=== PATIENT | male | born 1950 | race Caucasian/White ===

== ENCOUNTER 2017-02-06 16:03 | Inpatient (IN) ==
[2017-02-06 19:09] LABS: Bilirubin,Urine Negative (Negative); Blood,Urine Negative (Negative); Clarity,Urine Cloudy (Clear); Color,Urine Yellow (Yellow); Glucose,Urine (UA) Normal (Normal); Ketones,Urine Negative (Negative); Leukocyte Esterase,Urine Trace (Negative); Nitrite,Urine Negative (Negative); PH,Urine 5.5 pH Units (5.0-8.0); Protein,Urine Trace mg/dL (Neg-Trace); Urobilinogen,Urine Normal (Normal)
[2017-02-06 19:27] LABS: Bacteria,Urine None Seen per hpf (None-Few); Squamous Epithelial Cell,Urine Many per lpf (None-Few)
[2017-02-06 19:33] LABS: Basophils # 0.1 K/mcL (0.0-0.2); Basophils % 0.3 %; Eosinophils # 0.1 K/mcL (0.0-0.6); Eosinophils % 0.3 %; Hematocrit 38.7 % (37.5-50.1); Hemoglobin 12.3 g/dL (12.9-16.9); Immature Granulocytes % 0.6 % (0-4); Immature Platelets 4.1 % (1.1-6.1); Lymphocytes # 1.4 K/mcL (0.6-4.6); Mean Corpuscular HGB Conc 31.8 g/dL (31.6-35.5); Mean Corpuscular Hemoglobin 27.9 pg (28.0-33.3); Mean Corpuscular Volume 87.8 fL (83.0-100.0); Mean Platelet Volume 10.2 fL (9.4-12.4); Monocytes # 1.4 K/mcL (0.0-1.3); Monocytes % 6.3 %; Neutrophils # 19.7 K/mcL (1.6-8.9); Platelet Count 307 K/mcL (140-400); Red Blood Count 4.41 M/mcL (4.19-5.50); Red Cell Distribution Width 14.2 % (11.5-14.5); Segmented Neutrophils % 86.5 %
--- NOTE | 2017-02-06 19:35 | Emergency Department Note ---
Disposition Clinical Impression: Ascites Qualifiers: Ascites type: malignant Qualified Code(s): R18.0 - Malignant ascites Dyspnea Qualifiers: Dyspnea type: shortness of breath Qualified Code(s): R06.02 - Shortness of breath Leukocytosis Qualifiers: Leukocytosis type: unspecified Qualified Code(s): D72.829 - Elevated white blood cell count, unspecified COPD (chronic obstructive pulmonary disease) Qualifiers: COPD type: unspecified COPD Qualified Code(s): J44.9 - Chronic obstructive pulmonary disease, unspecified CAD (coronary artery disease) Qualifiers: Coronary Disease-Associated Artery/Lesion type: [place] artery [place] vs. transplanted heart: [place] heart Associated angina: without angina Qualified Code(s): I25.10 - Atherosclerotic heart disease of [place] coronary artery without angina pectoris Disposition: Admitted As Inpatient Condition: Critical Time of Disposition: 01:31 General Adult HPI - General Chief complaint: ED Abdominal Pain Stated complaint: Sent from Drs office// abnormal CT Time Seen by Provider: 02/06/17 16:12 Source: patient, family Mode of arrival: ambulatory Limitations: no limitations Nursing Notes Reviewed: Yes Vital Signs Reviewed: Yes - History of Present Illness HPI Narrative: Mr. Yeager, a 66yo male, presents from home by POV for evaluation of abdominal pain and distention with associated dyspnea. Onset one week ago and worsening. Associated with bilateral lower back pain. Patient's dyspnea began 3 days ago and has also been progressive. Patient is currently being evaluated for gastric neoplasm. PMH: COPD, coronary artery disease, diabetes, hyperlipidemia, hypertension ROS: Positive: Abdominal distention and discomfort, bilateral lumbar back pain, dyspnea Negative: Fever, chills, nausea, vomiting, cough, chest pains, palpitations, upper back pain, weakness, numbness, tingling, melena, hematochezia, changes in bowel or bladder Pain Scale: 10 - Related Data Home Medications Medication Instructions Recorded Confirmed Atenolol [Tenormin] 25 mg PO BID 02/16/15 02/06/17 Hydrocodone/Acetaminophen [[place] 1 tab PO TID PRN 02/16/15 02/06/17 5-325 Tablet] Losartan/HCTZ [Hyzaar 50/12.5] 1 each PO DAILY 02/16/15 02/06/17 Pravastatin Sodium [Pravachol] 20 mg PO HS 02/16/15 02/06/17 Ranitidine HCl [Zantac] 150 mg PO DAILY PRN 02/16/15 02/06/17 Triamterene/HCTZ 37.5/25mg 1 each PO DAILY 02/16/15 02/06/17 [Dyazide] Clopidogrel [Plavix] 75 mg PO DAILY 09/10/15 02/06/17 Naproxen [Naprosyn] 500 mg PO BID PRN 09/10/15 02/06/17 Albuterol Sulfate [Albuterol 2 puff IH Q4H PRN 02/06/17 02/06/17 Inhaler] Ammonium Lactate [[place]-Hydrolac] 1 appl TP BID PRN 02/06/17 02/06/17 Aspirin Enteric Coated [Aspirin EC] 81 mg PO DAILY 02/06/17 02/06/17 Glimepiride [Amaryl] 4 mg PO BID 02/06/17 02/06/17 Allergies Allergy/AdvReac Type Severity Reaction Status Date / Time No Known Allergies Allergy Verified 06/05/16 17:08 All systems ED: reviewed and negative except as stated. Past Medical History - Past Medical History Medical history: Reports: COPD, coronary artery disease, diabetes, hyperlipidemia, hypertension Surgical history: Reports: coronary bypass (CABG) Psychiatric history: Reports: no psych history - Social History Smoking Status: Never smoker Smokeless Tobacco Status: No Alcohol use: Reports: rarely Drug use: Reports: none Physical Exam Vital Signs Reviewed General: Patient is alert, oriented, and in mild respiratory distress as evidenced by his shallow tachypneic breathing. HEENT: No facial asymmetry. Head is normocephalic and atraumatic. PERRLA, EOMI. oral mucosa moist. Trachea midline. Cardiovascular: Heart regular rate and rhythm without clicks, rubs, gallops, or murmurs. No JVD. PMI nondisplaced. Bilateral radial and posterior tibial pulses 2/4. Respiratory: Symmetric chest rise with poor respiratory effort. Bilateral breath sounds are clear without wheezing, crackles, or rhonchi. Abdomen: Bowel sounds present normoactive x-4 quadrants. Abdomen is soft, distended, and nontender. Unable to assess organomegaly secondary to patient's body habitus. Psych: Patient's affect is appropriate for situation. - General Limitations: no limitations General appearance: alert, other (mild resp distress with conversational dyspnea ) - Head Head exam: atraumatic, normocephalic, normal inspection - Eye Eye exam: Present: normal appearance, PERRL, EOMI. Absent: scleral icterus - ENT ENT exam: normal exam, normal oropharynx, mucous membranes moist - Neck Neck exam: Present: normal inspection. Absent: lymphadenopathy, thyromegaly - Chest Chest inspection: Present: normal inspection, symmetric chest wall rise, tenderness - Respiratory Respiratory exam: Present: normal lung sounds bilaterally. Absent: respiratory distress, wheezes, stridor - Cardiovascular Cardiovascular exam: Present: normal rhythm, tachycardia, normal heart sounds - Abdominal Exam Abdominal exam: Present: soft, Non-Tender, distention, normal bowel sounds, other (generalized abd distention with ascites). Absent: guarding, rebound, rigidity, pulsatile mass - Extremities Exam Extremities exam: Present: full ROM, normal capillary refill, pedal edema, other (1+ pitting edema to LE's b/l.). Absent: tenderness, calf tenderness - Back Exam Back exam: Present: normal inspection, full ROM. Absent: tenderness, CVA tenderness (R), CVA tenderness (L), muscle spasm, paraspinal tenderness, vertebral tenderness - Neurological Exam Neurological exam: Present: alert, oriented X3, CN II-XII intact, reflexes normal. Absent: motor sensory deficit - Psychiatric Psychiatric exam: Present: normal affect, normal mood - Skin Skin exam: Present: warm, dry, intact, normal color. Absent: rash, diaphoresis , pallor Course Course Narrative: Patient presents from home for evaluation of dyspnea. Clinically, this appears to be from reduced diaphragmatic excursion because of his substantial abdominal ascites. The patient does have a history of COPD, he typically requires no supple oxygen at home. His saturations 89% on room air. This improved to 92% on 2 L nasal cannula. This improved to 93-94% on 4 L nasal cannula. Suspect his abdominal ascites secondary to gastric malignancy which still in the process of being worked up by his production support analyst, Dr. Nicolas. Patient has no clinical evidence at this time of spontaneous bacterial peritonitis. Laboratory workup, however, he does have substantially elevated white count making SBP a concern. Will empirically cover. I am concerned about performing abdominal paracentesis within the emergency department given the patient's omental caking and lack of large and safe fluid pocket on bedside ultrasound. Through [facility], spoke with interventional radiology as we are currently after hours. They will perform paracentesis tomorrow morning. Chest x-ray is unremarkable for acute findings to explain the patient's dyspnea. I discussed the patient with admitting hospitalist agrees to accept the patient. CT chest 01/31 not concerning for pulmonary malignancy, pleural effusion, or pericardial effusion. Radiologist commented on omental caking. CT abdomen 01/29 "Interval marked increase in peritoneal and omental soft tissue implants compatible with neoplastic process. A moderate amount of ascites has increased." recent CTA chest: no PE recent BL LE doppler: no DVT Chest X-Ray 02/06/17 19:32 IMPRESSION: Negative low volume portable chest. D/ / Deo Frank MD / Deo Frank MD Interpreting Provider: Deo Frank MD Vital Signs Temperature 97.7 F 02/06/17 17:01 Pulse Rate 125 02/06/17 17:01 Respiratory Rate 18 02/06/17 17:01 Blood Pressure 105/68 02/06/17 17:01 O2 Sat by Pulse Oximetry 92 02/06/17 17:01 Temperature 97.9 F 02/07/17 11:09 Pulse Rate 102 02/07/17 11:09 Respiratory Rate 16 02/07/17 11:42 Blood Pressure 98/60 02/07/17 11:09 O2 Sat by Pulse Oximetry 93 02/07/17 11:42 Oxygen Delivery Oxygen Delivery Nasal Cannula Medical Decision Making - Medical Records Medical records reviewed: Yes I reviewed the patient's medical records. - Lab Data Lab results reviewed: Yes I reviewed the patient's lab results. Result diagrams: 02/07/17 04:42 02/07/17 04:42 Lab Results 02/06/17 02/06/17 02/06/17 Range/Units 18:54 19:19 19:26 WBC 22.8 H (4.3-11.1) K/mcL RBC 4.41 (4.19-5.50) M/mcL Hgb 12.3 L (12.9-16.9) g/dL Hct 38.7 (37.5-50.1) % MCV 87.8 (83.0-100.0) fL MCH 27.9 L (28.0-33.3) pg MCHC 31.8 (31.6-35.5) g/dL RDW 14.2 (11.5-14.5) % Plt Count 307 (140-400) K/mcL MPV 10.2 (9.4-12.4) fL Immature Gran % 0.6 (0-4) % Seg Neutrophils % 86.5 % Lymphocytes % 6.0 % Monocytes % 6.3 % Eosinophils % 0.3 % Basophils % 0.3 % Neutrophils # 19.7 H (1.6-8.9) K/mcL Lymphocytes # 1.4 (0.6-4.6) K/mcL Monocytes # 1.4 H (0.0-1.3) K/mcL Eosinophils # 0.1 (0.0-0.6) K/mcL Basophils # 0.1 (0.0-0.2) K/mcL Immature Plt Fraction 4.1 (1.1-6.1) % Sodium (136-145) mEq/L Potassium (3.5-4.5) mEq/L Chloride (98-109) mEq/L Carbon Dioxide (19-29) mEq/L BUN (8-26) mg/dL Creatinine (0.72-1.25) mg/dL Est GFR ( Amer) (> 60) Est GFR (Non-Af Amer) (> 60) BUN/Creatinine Ratio (6-26) Glucose (70-99) mg/dL POC Glucose 105 H (58-89) Calculated Osmolality (280-300) Lactic Acid (0.5-2.2) mmol/L Calcium (8.6-10.8) mg/dL Total Bilirubin (0.2-1.2) mg/dL Direct Bilirubin (0.0-0.5) mg/dL Indirect Bilirubin (0.0-1.2) mg/dL AST (5-34) Units/L ALT (0-55) Units/L Alkaline Phosphatase (38-126) Units/L Troponin I (0-0.03) ng/mL Serum Total Protein (6.0-8.3) g/dL Albumin (3.5-5.0) g/dL Globulin (2.4-3.5) g/dL Albumin/Globulin Ratio (1.1-2.2) Lipase (8-78) Units/L Urine Color Yellow (Yellow) Urine Clarity Cloudy A (Clear) Urine pH 5.5 (5.0-8.0) pH Units Ur Specific [place] 1.020 (1.010-1.025) Urine Protein Trace (Neg-Trace) mg/dL Urine Glucose (UA) Normal (Normal) mg/dL Urine Ketones Negative (Negative) mg/dL Urine Blood Negative (Negative) Urine Nitrite Negative (Negative) Urine Bilirubin Negative (Negative) Urine Urobilinogen Normal (Normal) mg/dL Ur Leukocyte Esterase Trace H (Negative) Urine Microscopic RBC 0-3 (0-3) per hpf Urine Microscopic WBC 5-15 H (0-3) per hpf Ur Squamous Epith Cells Many H (None-Few) per lpf Ur Transition Epith Cell Few (None-Few) per hpf Amorphous Sediment Few (Few) Urine Bacteria None Seen (None-Few) per hpf Hyaline Casts Few (None-Few) per lpf Granular Casts Few H (None Seen) per lpf Urine Yeast Test Not Performed Ur Culture Indicated? YES A (NO) 02/06/17 02/06/17 02/06/17 Range/Units 19:26 19:26 20:46 WBC (4.3-11.1) K/mcL RBC (4.19-5.50) M/mcL Hgb (12.9-16.9) g/dL Hct (37.5-50.1) % MCV (83.0-100.0) fL MCH (28.0-33.3) pg MCHC (31.6-35.5) g/dL RDW (11.5-14.5) % Plt Count (140-400) K/mcL MPV (9.4-12.4) fL Immature Gran % (0-4) % Seg Neutrophils % % Lymphocytes % % Monocytes % % Eosinophils % % Basophils % % Neutrophils # (1.6-8.9) K/mcL Lymphocytes # (0.6-4.6) K/mcL Monocytes # (0.0-1.3) K/mcL Eosinophils # (0.0-0.6) K/mcL Basophils # (0.0-0.2) K/mcL Immature Plt Fraction (1.1-6.1) % Sodium 140 (136-145) mEq/L Potassium 4.7 H (3.5-4.5) mEq/L Chloride 104 (98-109) mEq/L Carbon Dioxide 26 (19-29) mEq/L BUN 29 H (8-26) mg/dL Creatinine 1.36 H (0.72-1.25) mg/dL Est GFR ( Amer) > 60 (> 60) Est GFR (Non-Af Amer) 52 L (> 60) BUN/Creatinine Ratio 21 (6-26) Glucose 114 H (70-99) mg/dL POC Glucose (58-89) Calculated Osmolality 297 (280-300) Lactic Acid 1.2 (0.5-2.2) mmol/L Calcium 10.0 (8.6-10.8) mg/dL Total Bilirubin 0.4 (0.2-1.2) mg/dL Direct Bilirubin 0.3 (0.0-0.5) mg/dL Indirect Bilirubin 0.1 (0.0-1.2) mg/dL AST 31 (5-34) Units/L ALT 11 (0-55) Units/L Alkaline Phosphatase 78 (38-126) Units/L Troponin I 0.01 (0-0.03) ng/mL Serum Total Protein 6.8 (6.0-8.3) g/dL Albumin 2.7 L (3.5-5.0) g/dL Globulin 4.1 H (2.4-3.5) g/dL Albumin/Globulin Ratio 0.7 L (1.1-2.2) Lipase 20 (8-78) Units/L Urine Color (Yellow) Urine Clarity (Clear) Urine pH (5.0-8.0) pH Units Ur Specific [place] (1.010-1.025) Urine Protein (Neg-Trace) mg/dL Urine Glucose (UA) (Normal) mg/dL Urine Ketones (Negative) mg/dL Urine Blood (Negative) Urine Nitrite (Negative) Urine Bilirubin (Negative) Urine Urobilinogen (Normal) mg/dL Ur Leukocyte Esterase (Negative) Urine Microscopic RBC (0-3) per hpf Urine Microscopic WBC (0-3) per hpf Ur Squamous Epith Cells (None-Few) per lpf Ur Transition Epith Cell (None-Few) per hpf Amorphous Sediment (Few) Urine Bacteria (None-Few) per hpf Hyaline Casts (None-Few) per lpf Granular Casts (None Seen) per lpf Urine Yeast Ur Culture Indicated? (NO) - Radiology Data Radiology results reviewed: Yes I reviewed the patient's radiology results. Chest X-Ray 02/06/17 19:32 IMPRESSION: Negative low volume portable chest. D/ / Deo Frank MD / Deo Frank MD Interpreting Provider: Deo Frank MD - EKG Data EKG #1 EKG attestation: Yes I reviewed and interpreted this EKG. EKG results narrative: EKG dated 06 February 2017 at 19:48 sinus tachycardia with a rate of 113 and P- wave inversion scattered throughout. Normal axis. Nonspecific ST-T axis. Compared to previous dated 02/17/2015 showing sinus rhythm. Attestation Statement - Attestation Attestation: I examined this patient and my medical decision-making was reviewed with the Resident Physician, Dr. Rincon. I agree with the documented findings, disposition and treatment plan as described except to the extent set forth below. Pt is a 66 yo wm who presents to the ED by private vehicle with his for c/ o grad worsening abd distention, SOB, and dec appetite. Pt has been experiencing these sxs for past 10 days, and has been seeing his PCP for these worsening symptoms. Pt had recent CT scanning by his PCP, CT a&P and CT chest at end of January. CT shows concerning findings for abd neoplasm and ascites. CT chest neg for PE/pericardial effusion/pleural effusions. Pt also had DVT studies of LE's which were neg. Pt awaiting f/u with Dr. Nicolas for EGD and biopsies. Pt arrives with hypoxia and incr work of breathing, tachycardic. Pt placed on suppl O2, also hx COPD, but no wheezing. Improved O2 sats on suppl O2. I agree with PE as documented. EKG with no ischemia, sinus tach. CXR wnl. Labs drawn and sent, and reviewed recent CT studies. Pt clinically improved with suppl O2. Resting more comfortably at this time. CT shows grad worsening ascites, with significant omental caking secondary to abd CA. Feel pt would benefit from therapeutic paracentesis. Pt with sig elev WBC count, but no abd pain. Will cover pt with antibx for possible early SBP, and await peritoneal fluid analysis. D/W [facility], who agreed to consult on pt in am for paracentesis. VS improved and pt more comfortable at this time. D/W hosp, who agreed to admit pt for further mgmt.
[2017-02-06 19:42] LABS: Amorphous Sediment,Urine Few (Few); Granular Casts,Urine Few per lpf (None Seen); Hyaline Casts,Urine Few per lpf (None-Few); RBC,Urine 0-3 per hpf (0-3); Transitional Epi Cells,Urine Few per hpf (None-Few)
[2017-02-06 19:48] LABS: Alanine Aminotransferase 11 Units/L (0-55); Albumin 2.7 g/dL (3.5-5.0); Albumin/Globulin Ratio 0.7 (1.1-2.2); Alkaline Phosphatase 78 Units/L (38-126); Aspartate Amino Transferase 31 Units/L (5-34); BUN/Creatinine Ratio 21 (6-26); Bilirubin,Direct 0.3 mg/dL (0.0-0.5); Bilirubin,Indirect 0.1 mg/dL (0.0-1.2); Bilirubin,Total 0.4 mg/dL (0.2-1.2); Blood Urea Nitrogen 29 mg/dL (8-26); Carbon Dioxide 26 mEq/L (19-29); Chloride 104 mEq/L (98-109); Globulin 4.1 g/dL (2.4-3.5); Glucose 114 mg/dL (70-99); Lipase 20 Units/L (8-78); Osmolality,Calculated 297 (280-300); Potassium 4.7 mEq/L (3.5-4.5); Sodium 140 mEq/L (136-145); Total Protein 6.8 g/dL (6.0-8.3); eGFR For African Americans > 60 (> 60); eGFR For Non-African Americans 52 (> 60)
--- NOTE | 2017-02-06 23:36 | Internal Med History&Physical ---
Date of Encounter: 02/07/17 Time of Encounter: 23:30 Assessment and Plan (1) Ascites Current visit: Yes Status: Acute Patient has massive ascites - with abdominal distention and dyspnea - possibly due to gastric neoplasm or cirrhosis, possible SBP Start IV Lasix and PO Aldactone, empiric IV Cefotaxime Chest x-ray - no acute process Ammonia - pending WBC - 22.8 CT abdomen and pelvis (01/29/2017) - interval marked increase in peritoneal and omental soft tissue implants compatible with neoplastic process, moderate amount of ascites has increased UA - trace Leukocyte Esterase IR consult for paracentesis in a.m. Gastroenterology consult environmental monitoring specialist, continuous pulse ox, labs in a.m., monitor closely Qualifiers: Ascites type: malignant Qualified Code(s): R18.0 - Malignant ascites (2) Leukocytosis Current visit: Yes Status: Acute Leukocytosis - clear etiology, concern for SBP - although patient does not have fever and he is hemodynamically stable Continue IV Cefotaxime, repeat labs in a.m. Qualifiers: Leukocytosis type: unspecified Qualified Code(s): D72.829 - Elevated white blood cell count, unspecified (3) CAD (coronary artery disease) Current visit: Yes Status: Chronic Coronary artery disease status post CABG - stable Continue Aspirin and Plavix after paracentesis Qualifiers: Coronary Disease-Associated Artery/Lesion type: [place] artery [place] vs. transplanted heart: [place] heart Associated angina: without angina Qualified Code(s): I25.10 - Atherosclerotic heart disease of [place] coronary artery without angina pectoris (4) COPD (chronic obstructive pulmonary disease) Current visit: No Status: Chronic COPD, stable, not in exacerbation, continue albuterol as needed Qualifiers: COPD type: unspecified COPD Qualified Code(s): J44.9 - Chronic obstructive pulmonary disease, unspecified (5) Diabetes Current visit: No Status: Acute Diabetes mellitus type 2, [id number], normoglycemia Continue insulin sliding scale, glucose checks Qualifiers: Diabetes mellitus type: type 2 Diabetes mellitus complication status: without complication Diabetes mellitus termination clerk insulin use: without fci use Qualified Code(s): E11.9 - Type 2 diabetes mellitus without complications (6) Essential hypertension Current visit: Yes Status: Chronic Essential hypertension, controlled, continue to monitor (7) DVT prophylaxis Current visit: Yes Status: Acute Continue heparin subcutaneous Internal Medicine - H&P: HPI Chief complaint: Abdominal pain and distention Admitted From: Emergency Dept Plans for Post Hospital Care: Home History of present illness: Mr. Yeager is a 66 year old male with past medical history of COPD, coronary artery disease, status post CABG, diabetes, hyperlipidemia and hypertension. Patient presents to the ED with complaints of abdominal pain and distention. He also complains of shortness of breath that started about 3 days ago and has gradually worsened. Patient is being evaluated for a gastric neoplasm. He recently had CT scan of his abdomen and pelvis and also of his chest. CT revealed extensive omental caking and ascites, in the upper abdomen compatible with peritoneal metastatic disease. On examination patient is a regular work. Not in any distress. Able to provide all history. Family is not at bedside. Patient complains of abdominal pain and distention. Patient does have massive ascites. He will need paracentesis. Patient complains of shortness of breath on exertion and also when laying flat. Denies chest pain or palpitations or headache or dizziness. Denies vomiting or diarrhea. He does have some subjective fever. No other acute complaints. Initial evaluation in the ED revealed elevated white count and tachycardia. Patient is being admitted for abdominal pain and distention with massive ascites. The ascites could be due to gastric malignancy which is still in the process of being worked up by Dr. Nicolas. Patient is not toxic looking. We are going to empirically cover with IV antibiotics. Interventional radiology has been contacted for paracentesis, will be done in the morning. Patient has been explained about his condition and plan of care in detail. He understood and agreed. No unanswered questions. CODE STATUS full code. Past Med Surg Social Fam HX - Past Medical History Medical history: COPD, coronary artery disease, diabetes, hyperlipidemia, hypertension Psychiatric history: no psych history - Past Surgical History Surgical History: coronary bypass (CABG) - Social History Smoking Status: Never smoker Smokeless Tobacco Status: No Alcohol use: rarely Drug use: none - Family History Mother Living Status: Father Living Status: Internal Medicine - H&P: Meds RX: Atenolol [Tenormin] 25 mg PO BID 02/16/15 [History] RX: Hydrocodone/Acetaminophen [[place] 5-325 Tablet] 1 tab PO TID PRN 02/16/15 [ History] RX: Losartan/HCTZ [Hyzaar 50/12.5] 1 each PO DAILY 02/16/15 [History] RX: Pravastatin Sodium [Pravachol] 20 mg PO HS 02/16/15 [History] RX: Ranitidine HCl [Zantac] 150 mg PO DAILY PRN 02/16/15 [History] RX: Triamterene/HCTZ 37.5/25mg [Dyazide] 1 each PO DAILY 02/16/15 [History] Clopidogrel [Plavix] 75 mg PO DAILY 09/10/15 [History] Naproxen [Naprosyn] 500 mg PO BID PRN 09/10/15 [History] Albuterol Sulfate [Albuterol Inhaler] 2 puff IH Q4H PRN 02/06/17 [History] Ammonium Lactate [Viji-Hydrolac] 1 appl TP BID PRN 02/06/17 [History] Aspirin Enteric Coated [Aspirin EC] 81 mg PO DAILY 02/06/17 [History] Glimepiride [Amaryl] 4 mg PO BID 02/06/17 [History] 3 Allergy/AdvReac Type Severity Reaction Status Date / Time No Known Allergies Allergy Verified 06/05/16 17:08 All Systems PM: A 10-system review of systems was performed and is negative for pertinent findings except as documented above in the HPI. - Constitutional Constitutional: fatigue, fever(s), weakness - EENT Eyes: no blurry vision - Cardiovascular Cardiovascular ROS IM: dyspnea, dyspnea on exertion, edema, no chest pain, no lightheadedness, no orthopnea, no palpitations, no syncope - Respiratory Respiratory: dyspnea, dyspnea on exertion, no cough, no hemoptysis, no wheezing , no chest congestion - Gastrointestinal Gastrointestinal: abdominal pain, bloating, no constipation, no cramping, no diarrhea, no hematemesis, no hematochezia, no melena, no nausea, no vomiting - Genitourinary Genitourinary ROS male: no dysuria - Musculoskeletal Musculoskeletal ROS IM: back pain - Neurological Neurological ROS: no abnormal gait, no confusion, no dizziness, no loss of vision, no numbness - Constitutional Vitals: Temp Pulse Resp BP Pulse Ox 97.9 F 110 17 102/69 95 02/06/17 23:07 02/06/17 23:07 02/06/17 23:07 02/06/17 23:07 02/06/17 23:07 General appearance: Present: A&O X 3, pleasant, no acute distress, obese, answers questions appropriately Exam: Seems to be in discomfort due to abdominal distention - Head Head exam: Present: atraumatic - Eye Eye exam: Present: EOMI - ENT ENT exam: Present: mucous membranes dry - Respiratory Respiratory exam: Present: decreased breath sounds (Decreased breath sounds in both bases, otherwise clear to auscultation). Absent: rales, rhonchi, wheezes, tachypnea - Cardiovascular Cardiovascular exam: Present: RRR, +S1, +S2 - GI/Abdominal GI/Abdominal exam: Present: distended (Patient has massive ascites), firm (Due to ascites), no peritoneal signs. Absent: guarding, soft, tenderness - Extremities Exam Extremities exam: Present: pedal edema (Bilateral lower leg 2+ pitting edema), radial pulses palpable and symmetrical. Absent: calf tenderness, cyanotic - Neurological Exam Neurological exam: Present: alert, oriented X3, no focal deficits. Absent: facial droop, speech deficit Internal Med - H&P Results - Labs CBC & Chem 7: 02/06/17 19:26 02/06/17 19:26
[2017-02-07] MEDS ORDERED: D5% in Water 1,000 ML IVC PRN (00:37)
[2017-02-07] MEDS ORDERED: Dextrose Gel 15 GM PO PRN ×2 (00:37)
[2017-02-07] MEDS ORDERED: *HR* Dextrose 50 % in Water (Syg) 50 ML SYRINGE IVP PRN (00:37)
[2017-02-07 04:55] LABS: Basophils % 0.2 %; Eosinophils # 0.1 K/mcL (0.0-0.6); Eosinophils % 0.2 %; Hematocrit 38.7 % (37.5-50.1); Hemoglobin 12.2 g/dL (12.9-16.9); Immature Granulocytes % 0.5 % (0-4); Lymphocytes # 1.3 K/mcL (0.6-4.6); Lymphocytes % 6.4 %; Mean Corpuscular HGB Conc 31.5 g/dL (31.6-35.5); Mean Corpuscular Hemoglobin 28.2 pg (28.0-33.3); Mean Corpuscular Volume 89.6 fL (83.0-100.0); Mean Platelet Volume 10.5 fL (9.4-12.4); Monocytes # 1.2 K/mcL (0.0-1.3); Neutrophils # 17.7 K/mcL (1.6-8.9); Platelet Count 288 K/mcL (140-400); Red Blood Count 4.32 M/mcL (4.19-5.50); Red Cell Distribution Width 14.2 % (11.5-14.5); Segmented Neutrophils % 86.7 %
[2017-02-07 05:17] LABS: Alanine Aminotransferase 11 Units/L (0-55); Albumin 2.6 g/dL (3.5-5.0); Albumin/Globulin Ratio 0.7 (1.1-2.2); Alkaline Phosphatase 78 Units/L (38-126); Aspartate Amino Transferase 31 Units/L (5-34); BUN/Creatinine Ratio 22 (6-26); Bilirubin,Total 0.4 mg/dL (0.2-1.2); Blood Urea Nitrogen 30 mg/dL (8-26); Calcium 9.9 mg/dL (8.6-10.8); Carbon Dioxide 27 mEq/L (19-29); Chloride 104 mEq/L (98-109); Glucose 81 mg/dL (70-99); Magnesium 1.9 mg/dL (1.6-2.6); Osmolality,Calculated 293 (280-300); Potassium 4.9 mEq/L (3.5-4.5); Sodium 139 mEq/L (136-145); Total Protein 6.6 g/dL (6.0-8.3); eGFR For African Americans > 60 (> 60); eGFR For Non-African Americans 51 (> 60)
[2017-02-07 05:20] LABS: INR 1.2; Prothrombin Time 12.5 Seconds (9.4-12.1)
[2017-02-07] MEDS: *HR* Heparin 5,000 UNIT/ML VIAL SQ SCH ×2 (05:56→16:58)
[2017-02-07] MEDS ORDERED: Cefotaxime 2,000 MG in D5% in Water 100 ML IVPB SCH (06:00)
[2017-02-07] MEDS: Cefotaxime 2,000 MG in D5% in Water 100 ML IVPB SCH ×3 (07:46→23:41)
[2017-02-07] MEDS: Aspirin Enteric Coated 81 MG Tablet PO SCH (07:46)
[2017-02-07] MEDS: Insulin LISPRO 300 UNITS/3 ML VIAL SQ SCH ×3 (07:47→17:11)
[2017-02-07] MEDS ORDERED: *HR* Morphine 2 MG/ML SYRINGE IVP PRN (08:18)
[2017-02-07] MEDS ORDERED: Spironolactone 25 MG TABLET PO SCH (09:00)
[2017-02-07] MEDS ORDERED: Furosemide 40 MG/4 ML VIAL IVP SCH ×2 (09:00→17:00)
--- NOTE | 2017-02-07 12:37 | Gastroenterology Consult Note ---
<William Dexter - Last Filed: 02/07/17 12:35> Date of Encounter: 02/07/17 Time of Encounter: 11:30 - Assessment and plan (1) Abnormal finding on imaging Current Visit: Yes Status: Acute Assessment and plan: CT A/P 01/30/2017 marked increase in peritoneal and omental soft tissue implants compatible with neoplastic process, moderate amount of ascites. CT chest 02/01/2017 with extensive omental caking and ascites in the upper abdomen compatible with peritoneal metastatic disease. Patient saw Dr. Nicolas on [address]-guided biopsy was ordered of the abdominal lesions. Plan for CT biopsy to be completed while inpatient. (2) Ascites Current Visit: Yes Status: Acute Assessment and plan: Concern for neoplastic process. Paracentesis completed this morning. LFTs normal , liver normal on imaging, platelets normal. Qualifiers: Ascites type: malignant Qualified Code(s): R18.0 - Malignant ascites - Time Spent With Patient Total time spent is greater than 50% in coordination of care (as documented) at patient's floor/unit and/or counseling patient: GI History of Present Illness - Data of Consult Patient: known to practice within the last 3 years Consult date: 02/07/17 Requesting Physician: Jonah Stock MD - Consult Narrative Reason for consult: ascites History of present illness: Mr. Yeager is a 66 year old male with PMHx of COPD, CAD status post CABG, IDDM, hyperlipidemia, and HTN who presented to the ED with complaints of abdominal pain and distention. He also reported shortness of breath this started approximately 3 days prior to admission which has worsened. CT A/P 01/30/2017 marked increase in peritoneal and omental soft tissue implants compatible with neoplastic process, moderate amount of ascites. CT chest 02/01/2017 with extensive omental caking and ascites in the upper abdomen compatible with peritoneal metastatic disease. Patient saw Dr. Nicolas on 02/01/[address]- guided biopsy was ordered of the abdominal lesions. Patient did have massive ascites with abdominal distention and dyspnea. Patient was started on IV Lasix, PO Aldactone, and empiric IV cefotaxime. Ammonia normal, LFTs normal. Procedures: None NSAIDs: ASA Anticoagulation: Plavix Past Med Surg Social Fam HX - Past Medical History Medical history: COPD, coronary artery disease, diabetes, hyperlipidemia, hypertension Psychiatric history: no psych history - Past Surgical History Surgical History: coronary bypass (CABG) - Social History Smoking Status: Never smoker Packs per day: 1.5 Smokeless Tobacco Status: No Alcohol use: rarely Drug use: none - Family History Mother Living Status: Hx Family Cardiac Disorders: Yes (Heart Failure) Father Living Status: Hx Family Respiratory Disorders: Yes (Lung Ca.) - Gastrointestinal Gastrointestinal: Present: as per HPI - Constitutional Constitutional: as per HPI - EENT Eyes: as per HPI Ears: Present: as per HPI Nose, mouth and throat: Present: as per HPI - Cardiovascular Cardiovascular ROS: Present: as per HPI - Respiratory Respiratory IM: Present: as per HPI - Genitourinary Genitourinary: Absent: change in color, Urinary frequency - Neurological ROS Neurological GI: Present: as per HPI - Hematologic/Lymphatic Hematologic/Lymphatic pediatric: Present: as per HPI - Musculoskeletal Musculoskeletal ROS GI: Present: as per HPI - Integumentary Integumentary GI: Present: as per HPI - Psychiatric ROS Psychiatric GI: Present: as per HPI - Endocrine Endocrine IM: Present: as per HPI - Constitutional Vitals: Temp Pulse Resp BP Pulse Ox 97.9 F 102 16 98/60 93 02/07/17 11:09 02/07/17 11:09 02/07/17 11:09 02/07/17 11:09 02/07/17 11:09 General appearance: Present: cooperative, A&O X 3, no acute distress, answers questions appropriately - Head Head exam: Present: atraumatic, normocephalic - Eye Eye exam: Present: normal appearance, sclera anicteric - ENT ENT exam: Present: mucous membranes moist - Neck Neck exam general surgery: Present: normal inspection, trachea midline - Respiratory Respiratory exam: Present: CTAB. Absent: rales, rhonchi - Cardiovascular Cardiovascular exam: Present: RRR, +S1, +S2 - GI/Abdominal GI/Abdominal exam: Present: distended, firm, soft, tenderness (mild generalized) , no peritoneal signs. Absent: guarding - Expanded GI/Abdominal Exam GI/Abdominal exam expanded: Present: ascites - Rectal Rectal exam: Present: deferred - Extremities Exam Extremities exam: Present: warm - Neurological Exam Neurological exam: Present: no focal deficits - Psychiatric Psychiatric exam: Present: normal affect, normal mood - Skin Skin exam: Present: dry, intact, normal color, warm Results - Labs CBC & Chem 7: 02/07/17 04:42 02/07/17 04:42 Labs: Last Result Calcium 9.9 mg/dL (8.6-10.8) 02/07/17 04:42 Troponin I 0.01 ng/mL (0-0.03) 02/06/17 19:26 Entire Visit Hgb 12.2 g/dL (12.9-16.9) L 02/07/17 04:42 Hct 38.7 % (37.5-50.1) 02/07/17 04:42 PT 12.5 Seconds (9.4-12.1) H 02/07/17 04:42 Total Bilirubin 0.4 mg/dL (0.2-1.2) 02/07/17 04:42 AST 31 Units/L (5-34) 02/07/17 04:42 ALT 11 Units/L (0-55) 02/07/17 04:42 Ammonia 31 mcmol/L (18-72) 02/07/17 04:42 Lipase 20 Units/L (8-78) 02/06/17 19:26 - ABG ABG results: PT/INR, D-dimer PT 12.5 Seconds (9.4-12.1) H 02/07/17 04:42 Consult Discharge Plan - Plan Referrals: Angel Price, MEDICAL BILLING MANAGER [Primary Care Provider] - <Steffanie Nicolas - Last Filed: 02/07/17 17:42> Date of Encounter: 02/07/17 Time of Encounter: 17:20 - Time Spent With Patient Total time spent is greater than 50% in coordination of care (as documented) at patient's floor/unit and/or counseling patient: GI History of Present Illness - Data of Consult Requesting Physician: Jonah Stock MD - Consult Narrative History of present illness: Mr. Yeager is a 66 year old male - Constitutional Vitals: Temp Pulse Resp BP Pulse Ox 97.9 F 102 16 98/60 93 02/07/17 11:09 02/07/17 11:09 02/07/17 16:10 02/07/17 11:09 02/07/17 16:10 Results - Labs CBC & Chem 7: 02/07/17 04:42 02/07/17 04:42 Labs: Last Result Calcium 9.9 mg/dL (8.6-10.8) 02/07/17 04:42 Troponin I 0.01 ng/mL (0-0.03) 02/06/17 19:26 Entire Visit Hgb 12.2 g/dL (12.9-16.9) L 02/07/17 04:42 Hct 38.7 % (37.5-50.1) 02/07/17 04:42 PT 12.5 Seconds (9.4-12.1) H 02/07/17 04:42 Total Bilirubin 0.4 mg/dL (0.2-1.2) 02/07/17 04:42 AST 31 Units/L (5-34) 02/07/17 04:42 ALT 11 Units/L (0-55) 02/07/17 04:42 Ammonia 31 mcmol/L (18-72) 02/07/17 04:42 Lipase 20 Units/L (8-78) 02/06/17 19:26 - ABG ABG results: PT/INR, D-dimer PT 12.5 Seconds (9.4-12.1) H 02/07/17 04:42 - Attending Attestation I examined this patient and my medical decision-making was reviewed with the Resident Physician. I agree with the documented findings, disposition and treatment plan as described except to the extent set forth below. carcinomatosis with ascites. Please send the ascitic fluid for cytology and patient is to also have CT-guided biopsy of the omental lesions
--- NOTE | 2017-02-07 14:55 | IR Procedure Note ---
Date of procedure: 02/07/17 Consent Obtained: Verbal consent, Written consent Timeout: Correct patient and procedure verified, Correct site verified, Time out performed, Skin prep completed Local anesthetic: Lidocaine 1% Indications: ascites Procedure Performed: paracentesis Site/Technique: RLQ Results/Findings: 4250 mL aspirated Estimated blood loss (cc): 1 Complications: None; Tolerated procedure well Post Procedure Treatment Plan: fluid studies pending
--- NOTE | 2017-02-07 15:56 | Internal Med Progress Note ---
Date of Encounter: 02/07/17 Time of Encounter: 15:54 - Assessment and plan (1) Acute hypoxemic respiratory failure Current Visit: No Status: Acute Assessment and plan: Due to severe Ascities s/p Paracentesis removed 4.5lit fluid now breathing comfortably on RA Cont duonebs for now (2) Peritoneal metastases Current Visit: Yes Status: Acute Assessment and plan: Reviewed his CT of Abd and CT of chest from 02/01/17 Concernign for possible peritoneal metastases with omental soft tissue implants scheduled for CT guided omental tissue biopsy in AM GI is on board Heme Onc consulted Will f/u on paracentesis fluid cytology cont supportive and symptomatic care (3) Omental mass Current Visit: Yes Status: Acute Assessment and plan: scheduled for CT guided biopsy in AM (4) Ascites Current Visit: Yes Status: Acute Assessment and plan: mostly due to peritoneal lesions s/p paracentesis cont IV lasix Held Aldactone due to hyperkalemia Qualifiers: Ascites type: malignant Qualified Code(s): R18.0 - Malignant ascites (5) Diabetes Current Visit: No Status: Acute Assessment and plan: Was hypoglycemic last night ..could be due to not eating will hold on any DM meds including insulin cont close monitoring for now Qualifiers: Diabetes mellitus type: type 2 Diabetes mellitus complication status: without complication Diabetes mellitus svp insulin use: without mcc use Qualified Code(s): E11.9 - Type 2 diabetes mellitus without complications (6) COPD (chronic obstructive pulmonary disease) Current Visit: Yes Status: Chronic Assessment and plan: not in exacerbation cont duoneb Qualifiers: COPD type: unspecified COPD Qualified Code(s): J44.9 - Chronic obstructive pulmonary disease, unspecified (7) DVT prophylaxis Current Visit: Yes Status: Acute Assessment and plan: on SQ heparin (8) CAD (coronary artery disease) Current Visit: Yes Status: Chronic Assessment and plan: s/p CABG Resumed all home meds Qualifiers: Coronary Disease-Associated Artery/Lesion type: [place] artery [place] vs. transplanted heart: [place] heart Associated angina: without angina Qualified Code(s): I25.10 - Atherosclerotic heart disease of [place] coronary artery without angina pectoris (9) RUTH (acute kidney injury) Current Visit: Yes Status: Acute Assessment and plan: Avoid nephrotoxic meds cont close monitoring d/c Aldactone cut back on Lasix (10) Essential hypertension Current Visit: Yes Status: Chronic Assessment and plan: slightly on lower side will hold all BP meds - Subjective Interval history: Mr. Yeager is a 66 year old male with past medical history of COPD, coronary artery disease, status post CABG, diabetes, hyperlipidemia and hypertension. Patient presents to the ED with complaints of abdominal pain and distention. He also complains of shortness of breath that started about 3 days ago and has gradually worsened. Patient is being evaluated for a gastric neoplasm. He recently had CT scan of his abdomen and pelvis and also of his chest. CT revealed extensive omental caking and ascites, in the upper abdomen compatible with peritoneal metastatic disease. Pt was admitted here for further evaluation. He did go for therapeutic and diagnositc paracentesis by IR this morning. He is alert, awake and O x3. Denied any CP. His SOB / CASTILLO are improved after paracentesis. - Constitutional Vitals: Temp Pulse Resp BP Pulse Ox 97.9 F 102 16 98/60 93 02/07/17 11:09 02/07/17 11:02/07/17 11:42 02/07/17 11:02/07/17 11:42 General appearance: Present: A&O X 3, pleasant, no acute distress, obese, answers questions appropriately - Head Head exam: Present: atraumatic, normal inspection - Respiratory Respiratory exam: Present: decreased breath sounds, wheezes. Absent: rales, respiratory distress, rhonchi - Cardiovascular Cardiovascular exam: Present: RRR, +S1, +S2. Absent: diastolic murmur, gallop, rubs, systolic murmur - GI/Abdominal GI/Abdominal exam: Present: distended, normal bowel sounds, soft, no peritoneal signs. Absent: rebound, rigid, tenderness - Extremities Exam Extremities exam: Absent: calf tenderness, pedal edema, tenderness - Neurological Exam Neurological exam: Present: alert, oriented X3 - Psychiatric Psychiatric exam: Present: normal affect, normal mood Internal Medicine: Result - Labs CBC & Chem 7: 02/07/17 04:42 02/07/17 04:42 Labs: Short CBC 02/07/17 Range/Units 04:42 WBC 20.4 H (4.3-11.1) K/mcL Hgb 12.2 L (12.9-16.9) g/dL Hct 38.7 (37.5-50.1) % Plt Count 288 (140-400) K/mcL Neutrophils # 17.7 H (1.6-8.9) K/mcL BMP 02/07/17 04:42 Sodium 139 Potassium 4.9 H Chloride 104 Carbon Dioxide 27 BUN 30 H Creatinine 1.39 H Glucose 81 Calcium 9.9 Liver Function 02/07/17 Range/Units 04:42 Total Bilirubin 0.4 (0.2-1.2) mg/dL AST 31 (5-34) Units/L ALT 11 (0-55) Units/L Alkaline Phosphatase 78 (38-126) Units/L Albumin 2.6 L (3.5-5.0) g/dL - ABG Interpretation ABG results: PT/INR, D-dimer PT 12.5 Seconds (9.4-12.1) H 02/07/17 04:42 Consult Discharge Plan - Plan Referrals: Angel Price, JENNIFER [Primary Care Provider] -
--- NOTE | 2017-02-07 16:00 | Electrocardiograph Report ---
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
[2017-02-07] MEDS: Furosemide 40 MG/4 ML VIAL IVP SCH (16:57)
[2017-02-07] MEDS ORDERED: Insulin LISPRO 300 UNITS/3 ML VIAL SQ SCH (21:00)
[2017-02-08 05:01] LABS: Basophils # 0.1 K/mcL (0.0-0.2); Basophils % 0.6 %; Eosinophils # 0.2 K/mcL (0.0-0.6); Eosinophils % 1.8 %; Hematocrit 38.7 % (37.5-50.1); Hemoglobin 12.1 g/dL (12.9-16.9); Immature Granulocytes % 0.5 % (0-4); Lymphocytes # 1.2 K/mcL (0.6-4.6); Lymphocytes % 9.4 %; Mean Corpuscular HGB Conc 31.3 g/dL (31.6-35.5); Mean Corpuscular Hemoglobin 27.8 pg (28.0-33.3); Mean Platelet Volume 10.5 fL (9.4-12.4); Monocytes % 7.9 %; Platelet Count 237 K/mcL (140-400); Red Blood Count 4.35 M/mcL (4.19-5.50); Segmented Neutrophils % 79.8 %
[2017-02-08 05:18] LABS: Alanine Aminotransferase 11 Units/L (0-55); Albumin 2.2 g/dL (3.5-5.0); Albumin/Globulin Ratio 0.6 (1.1-2.2); Alkaline Phosphatase 76 Units/L (38-126); Aspartate Amino Transferase 27 Units/L (5-34); BUN/Creatinine Ratio 26 (6-26); Bilirubin,Total 0.3 mg/dL (0.2-1.2); Blood Urea Nitrogen 28 mg/dL (8-26); Calcium 9.5 mg/dL (8.6-10.8); Carbon Dioxide 24 mEq/L (19-29); Chloride 105 mEq/L (98-109); Globulin 3.8 g/dL (2.4-3.5); Glucose 103 mg/dL (70-99); Magnesium 1.5 mg/dL (1.6-2.6); Osmolality,Calculated 294 (280-300); Potassium 4.1 mEq/L (3.5-4.5); Sodium 139 mEq/L (136-145); eGFR For African Americans > 60 (> 60); eGFR For Non-African Americans > 60 (> 60)
[2017-02-08] MEDS: *HR* Heparin 5,000 UNIT/ML VIAL SQ SCH (05:54)
--- NOTE | 2017-02-08 08:24 | Oncology Inp Consult Note ---
Date of Encounter: 02/12/17 Time of Encounter: 18:00 Assessment and Plan (1) Omental mass Status: Acute Assessment and plan: Abdominal distention, status post drainage of ascites fluid, fluid analysis pending liver function tests within normal limits. Status post colonoscopy in July 2016. CT-guided biopsy of the omental metastases scheduled for this a.m. He is already holding antiplatelet therapy. We discussed imaging findings suspicious for metastatic malignancy, GI origin versus primary peritoneal disease versus disorders like lymphoma. We will await final pathology and discuss treatment options with patient. Ct chest for complete staging w/u. Will follow up on result for tumor board discussion and plan treatment. - Data of Consult Consult date: 02/07/17 Requesting Physician: Jonah Stock MD Primary Care Provider: Angel Price CNP - Consult Narrative Reason for consult: peritoneal mets History of present illness: Mr. Yeager is a 66 year old male with a medical history significant for COPD, coronary artery disease, diabetes mellitus, hyperlipidemia, hypertension, history of colon polyps status post a colonoscopy July 2016, patient had imaging done in June 2016 that showed possible omental infarct, metastatic disease, not biopsied at that time. Patient reports abdominal swelling since then hospitalized with recent onset of abdominal discomfort, pain, CT scan of the abdomen and pelvis showed omental caking as well as ascitis, patient is status post paracentesis drainage of the affected fluid of 4 L, cytology pending. He reports improvement in abdominal discomfort, distention. He denies any alteration in bowel habits denies nausea or vomiting, denies loss of appetite. Patient reports that he is otherwise felt well and review of systems completely negative. He had quit smoking recently. Past Med Surg Social Fam HX - Past Medical History Medical history: COPD, coronary artery disease, diabetes, hyperlipidemia, hypertension Psychiatric history: no psych history - Past Surgical History Surgical History: coronary bypass (CABG) - Social History Smoking Status: Never smoker Packs per day: 1.5 Smokeless Tobacco Status: No Alcohol use: rarely Drug use: none - Family History Mother Living Status: Hx Family Cardiac Disorders: Yes (Heart Failure) Father Living Status: Hx Family Respiratory Disorders: Yes (Lung Ca.) Medications and Allergies Atenolol [Tenormin] 25 mg PO BID 02/16/15 [History] Hydrocodone/Acetaminophen [[place] 5-325 Tablet] 1 tab PO TID PRN 02/16/15 [ History] Losartan/HCTZ [Hyzaar 50/12.5] 1 each PO DAILY 02/16/15 [History] Pravastatin Sodium [Pravachol] 20 mg PO HS 02/16/15 [History] Ranitidine HCl [Zantac] 150 mg PO DAILY PRN 02/16/15 [History] Triamterene/HCTZ 37.5/25mg [Dyazide] 1 each PO DAILY 02/16/15 [History] Clopidogrel [Plavix] 75 mg PO DAILY 09/10/15 [History] Naproxen [Naprosyn] 500 mg PO BID PRN 09/10/15 [History] Albuterol Sulfate [Albuterol Inhaler] 2 puff IH Q4H PRN 02/06/17 [History] Ammonium Lactate [[place]iji-Hydrolac] 1 appl TP BID PRN 02/06/17 [History] Aspirin Enteric Coated [Aspirin EC] 81 mg PO DAILY 02/06/17 [History] Glimepiride [Amaryl] 4 mg PO BID 02/06/17 [History] 3 Allergy/AdvReac Type Severity Reaction Status Date / Time No Known Allergies Allergy Verified 06/05/16 17:08 Review of systems: as in hpi Oncology - Exam - Constitutional Vitals: Temp Pulse Resp BP Pulse Ox 98.0 F 102 16 111/70 97 02/08/17 06:59 02/08/17 06:59 02/08/17 08:04 02/08/17 06:59 02/08/17 08:04 General appearance: obese - Head Head exam: Present: atraumatic, normal inspection - Eye Eye exam: Present: sclera anicteric - ENT ENT exam: Present: mucous membranes moist - Neck Neck exam: Present: full ROM, normal inspection - Respiratory Respiratory exam: Present: CTAB - Cardiovascular Cardiovascular exam: Present: +S1, +S2 - GI/Abdominal GI/Abdominal exam: Present: distended, normal bowel sounds, soft - Extremities Exam Extremities exam: Present: pedal edema - Neurological Exam Neurological exam: Present: alert, CN II-XII intact, oriented X3 - Psychiatric Psychiatric exam: Present: normal affect Oncology - Results Labs: Short CBC 02/08/17 Range/Units 04:50 WBC 12.6 H (4.3-11.1) K/mcL Hgb 12.1 L (12.9-16.9) g/dL Hct 38.7 (37.5-50.1) % Plt Count 237 (140-400) K/mcL Neutrophils # 10.0 H (1.6-8.9) K/mcL BMP 02/08/17 04:50 Sodium 139 Potassium 4.1 Chloride 105 Carbon Dioxide 24 BUN 28 H Creatinine 1.07 Glucose 103 H Calcium 9.5 Liver Function 02/08/17 Range/Units 04:50 Total Bilirubin 0.3 (0.2-1.2) mg/dL AST 27 (5-34) Units/L ALT 11 (0-55) Units/L Alkaline Phosphatase 76 (38-126) Units/L Albumin 2.2 L (3.5-5.0) g/dL Consult Discharge Plan - Plan Additional Instructions: Need to f/u with PCP as scheduled Need to f/u with Heme Onc Dr. Crystal to discuss about your test results Need to f/u with GI Dr. Nicolas in 1-2 weeks Referrals: Sonya Melara MD [Partnered Physician] - (WEB REQUEST OFFICE WILL CALL WITH APPOINTMENT) Angel Price CNP [Primary Care Provider] - 02/12/17 12:00 pm Steffanie Nicolas MD [Partnered Physician] - (WEB REQUEST - OFFICE WILL CALL WITH APPOINTMENT)
[2017-02-08] MEDS ORDERED: Magnesium Sulfate 2 GM in D5% in Water 100 ML IVPB ONE (08:30)
[2017-02-08] MEDS: Furosemide 40 MG/4 ML VIAL IVP SCH (09:17)
[2017-02-08] MEDS: Aspirin Enteric Coated 81 MG Tablet PO SCH (09:17)
[2017-02-08] MEDS: Cefotaxime 2,000 MG in D5% in Water 100 ML IVPB SCH (09:18)
[2017-02-08] MEDS: Insulin LISPRO 300 UNITS/3 ML VIAL SQ SCH ×2 (09:20→11:50)
--- NOTE | 2017-02-08 12:56 | Event Note ---
Date of Encounter: 02/08/17 Time of Encounter: 18:00 Full consult in draft form--unable to sign as locked. Agree with Ct guided bx. Await fluid cytology. Seen patient bedside and discussed findings/plan yesterday.
[2017-02-08] MEDS ORDERED: *HR* FentaNYL (PF) 100 MCG/2 ML VIAL IVP PRN (14:18)
[2017-02-08] MEDS ORDERED: *HR* Midazolam HCl 2 MG/2 ML VIAL IVP PRN (14:18)
[2017-02-08] MEDS ORDERED: 0.9 % Sodium Chloride 500 ML ONE (14:38)
[2017-02-08] MEDS ORDERED: *HR* Midazolam HCl 5 MG/5 ML VIAL IVP PRN (14:45)
--- NOTE | 2017-02-08 15:03 | IR Procedure Note ---
Date of procedure: 02/08/17 Consent Obtained: Verbal consent, Written consent Timeout: Correct patient and procedure verified, Correct site verified, Time out performed, Skin prep completed Local anesthetic: Lidocaine 1% Indications: Peritoneal mass Procedure Performed: CT biopsy Site/Technique: CT guided biopsy peritoneal mass Results/Findings: 5 18 gauge biopses Estimated blood loss (cc): 2 Complications: None; Tolerated procedure well Post Procedure Treatment Plan: Bedrest x1 hour
[2017-02-08] MEDS ORDERED: MetroNIDAZOLE 500 MG/100 ML 500 MG/100 ML BAG IVPB SCH (16:00)
[2017-02-08 16:09] VITALS: BP 104/71
--- NOTE | 2017-02-08 16:30 | Discharge Summary ---
Date of Encounter: 02/08/17 Time of Encounter: 16:30 - Discharge Diagnosis (1) Acute hypoxemic respiratory failure Priority: Primary Status: Acute (2) Peritoneal metastases Priority: Primary Status: Acute (3) Omental mass Priority: Primary Status: Acute (4) Ascites Priority: Primary Status: Acute Qualifiers: Ascites type: malignant Qualified Code(s): R18.0 - Malignant ascites (5) Diabetes Priority: Secondary Status: Acute Qualifiers: Diabetes mellitus type: type 2 Diabetes mellitus complication status: without complication Diabetes mellitus long term care phlebotomist insulin use: without shelter use Qualified Code(s): E11.9 - Type 2 diabetes mellitus without complications (6) COPD (chronic obstructive pulmonary disease) Priority: Secondary Status: Chronic Qualifiers: COPD type: unspecified COPD Qualified Code(s): J44.9 - Chronic obstructive pulmonary disease, unspecified (7) DVT prophylaxis Priority: Secondary Status: Acute (8) CAD (coronary artery disease) Priority: Secondary Status: Chronic Qualifiers: Coronary Disease-Associated Artery/Lesion type: [place] artery [place] vs. transplanted heart: osage heart Associated angina: without angina Qualified Code(s): I25.10 - Atherosclerotic heart disease of os[place] coronary artery without angina pectoris (9) RUTH (acute kidney injury) Priority: Secondary Status: Acute (10) Essential hypertension Priority: Secondary Status: Chronic - Discharge Medications Home Medications: Atenolol [Tenormin] 25 mg PO BID 02/16/15 [History] Hydrocodone/Acetaminophen [Bivins 5-325 Tablet] 1 tab PO TID PRN 02/16/15 [ History] Losartan/HCTZ [Hyzaar 50/12.5] 1 each PO DAILY 02/16/15 [History] Pravastatin Sodium [Pravachol] 20 mg PO HS 02/16/15 [History] Ranitidine HCl [Zantac] 150 mg PO DAILY PRN 02/16/15 [History] Triamterene/HCTZ 37.5/25mg [Dyazide] 1 each PO DAILY 02/16/15 [History] Clopidogrel [Plavix] 75 mg PO DAILY 09/10/15 [History] Naproxen [Naprosyn] 500 mg PO BID PRN 09/10/15 [History] Albuterol Sulfate [Albuterol Inhaler] 2 puff IH Q4H PRN 02/06/17 [History] Ammonium Lactate [Viji-Hydrolac] 1 appl TP BID PRN 02/06/17 [History] Aspirin Enteric Coated [Aspirin EC] 81 mg PO DAILY 02/06/17 [History] Glimepiride [Amaryl] 4 mg PO BID 02/06/17 [History] Allergies/Adverse Reactions: 3 Allergy/AdvReac Type Severity Reaction Status Date / Time No Known Allergies Allergy Verified 06/05/16 17:08 Procedures/tests Complete & Pending: Procedures Performed prior 72 hours Category Date Time Status CT biopsy abdomen percutaneous [CT] Stat Cat Scan 02/08/17 12:25 Completed IR paracentesis ultrasound [IR] Routine IR 02/07/17 Completed EKG [ECG 12 lead ECG] [ECG] Stat Y 02/08/17 11:48 Ordered Date of admission: 02/07/17 00:00 Primary care physician: Angel Price CNP Consults: 02/07/17 01:20 Consult to Interventional Radiology [CONS] Routine Consulting Provider: Radiology Interventional Cols Reason for Consult: Paracentesis Call Completed: No 02/07/17 01:25 Consult to Gastroenterology [CONS] Routine Consulting Provider: Gastroenterology Kaela Reason for Consult: ascites, cirrhosis Call Completed: No - Patient Status Disposition: Home, Self-Care Condition: Good Overall status at discharge: patient is back to baseline - Discharge Instructions Follow Up With: Angel Price CNP [Primary Care Provider] - 02/12/17 12:00 pm Sonya Melara MD [Partnered Physician] - Steffanie Nicolas MD [Partnered Physician] - Additional Instructions: Need to f/u with PCP as scheduled Need to f/u with Heme Onc Dr. Crystal to discuss about your test results Need to f/u with GI Dr. Nicolas in 1-2 weeks - Diet and Activity Activity: increase activity as tolerated Diet: low salt diet Hospital course: Mr. Yeager is a 66 year old male with past medical history of COPD, coronary artery disease, status post CABG, diabetes, hyperlipidemia and hypertension. Patient presents to the ED with complaints of abdominal pain and distention. He also complains of shortness of breath that started about 3 days ago and has gradually worsened. Patient is being evaluated for a gastric neoplasm. He recently had CT scan of his abdomen and pelvis and also of his chest. CT revealed extensive omental caking and ascites, in the upper abdomen compatible with peritoneal metastatic disease. Pt was admitted here for further evaluation. He did go for therapeutic and diagnostic paracentesis by IR y/d. Since then his SOB and abdomen distention improved. Now he is breathing comfortably on RA. Pt was seen by GI , who recommended for CT guided biopsy of omental / peritoneal mass by IR. He had his biopsy done this afternoon. Now he denied any abdominal pain / no cp / no SOB. Toleraing PO intake well and would like to go home. We held his Atenolol y/ d, today his HR was in 90's and 100's. After placing him back on Atenolol now his HR in 90's and doing well. Will d/c him home today in stable condition. Recommend to f/u with PCP in 5 days and Heme Oncologist in 1 week to discuss about test rrsults. I did talk to PCP Angel Price and updated her about current care and CT guided biopsy also. - Time Spent with Patient Total time spent providing and/or coordinating discharge services: - Constitutional Vitals: Temp Pulse Resp BP Pulse Ox 97.5 F L 105 15 104/71 95 02/08/17 16:07 02/08/17 16:07 02/08/17 16:07 02/08/17 16:07 02/08/17 16:07 General appearance: Present: A&O X 3, pleasant, no acute distress, obese, answers questions appropriately - Head Head exam: Present: atraumatic, normal inspection - Respiratory Respiratory exam: Present: decreased breath sounds, wheezes. Absent: rales, respiratory distress, rhonchi - Cardiovascular Cardiovascular exam: Present: RRR, +S1, +S2. Absent: systolic murmur - GI/Abdominal GI/Abdominal exam: Present: distended, normal bowel sounds, soft. Absent: rebound, rigid - Extremities Exam Extremities exam: Present: pedal edema (trace). Absent: calf tenderness, tenderness - Neurological Exam Neurological exam: Present: alert, oriented X3 - Psychiatric Psychiatric exam: Present: normal affect, normal mood
--- NOTE | 2017-02-09 16:27 | Electrocardiograph Report ---
[place] [id number] Test Date: 2017-02-08 Pat Name: Josué Yeager Department: 115 Room: 3A43 Gender: M Student Activities Director: : [id number] Requested By: Jonah Stock Order Number: [id number] Reading MD: Yanira Ayoub Measurements Intervals [place] Rate: 127 P: -87 WV: 84 QRS: 3 QRSD: 95 T: 0 QT: 298 QTc: 373 Interpretive Statements Atrial TACHYCARDIA POSSIBLE INFERIOR MYOCARDIAL INFARCTION, OF INDETERMINATE AGE Electronically Signed On 02-09-2017 16:25:52 EDT by Yanira Ayoub
== END 2017-02-08 17:50 | disposition home or self-care (01) | DRG 374 ==
LOC: 3ANU 16:03 → EMEROO 16:03 → 3ANU 22:38
PROVIDERS: ADMIT Family Medicine; ATTEND Family Medicine

== ENCOUNTER 2017-03-08 16:07 | Inpatient (IN) ==
[2017-03-08] MEDS ORDERED: *HR* Morphine 2 MG/ML SYRINGE IVP ONE (18:51)
[2017-03-08] MEDS ORDERED: *HR* Morphine 2 MG/ML SYRINGE ONE (18:55)
[2017-03-08] MEDS ORDERED: *HR* HYDROcodone/Acet 5/325 mg TABLET PO PRN (19:51)
[2017-03-08] MEDS ORDERED: Acetaminophen 325 MG TABLET PO PRN (19:51)
[2017-03-08] MEDS ORDERED: MOM Conc 10 ML UD.LIQ PO PRN (19:51)
[2017-03-08] MEDS ORDERED: Ondansetron 4 MG/2 ML VIAL IVP PRN (19:51)
[2017-03-08] MEDS ORDERED: Naloxone 0.4 MG/ML INJ IVP PRN (19:51)
[2017-03-08] MEDS ORDERED: *HR* Promethazine 25 MG/ML VIAL IVP PRN (19:51)
[2017-03-08] MEDS ORDERED: *HR* HYDROmorphone (PF) 1 MG/ML SYRINGE IVP PRN (19:51)
[2017-03-08] MEDS ORDERED: Ipratropium/Albuterol Neb 3 ML IH PRN (19:56)
[2017-03-08] MEDS ORDERED: D5% in 0.45% NACL 1,000 ML IVC SCH (20:00)
[2017-03-08 20:25] LABS: Basophils % 0.1 %; Eosinophils % 0.1 %; Hematocrit 36.8 % (37.5-50.1); Hemoglobin 11.5 g/dL (12.9-16.9); Immature Granulocytes % 1.1 % (0-4); Immature Platelets 3.6 % (1.1-6.1); Lymphocytes # 1.1 K/mcL (0.6-4.6); Lymphocytes % 3.5 %; Mean Corpuscular HGB Conc 31.3 g/dL (31.6-35.5); Mean Corpuscular Hemoglobin 26.6 pg (28.0-33.3); Mean Corpuscular Volume 85.2 fL (83.0-100.0); Mean Platelet Volume 10.4 fL (9.4-12.4); Monocytes # 1.6 K/mcL (0.0-1.3); Monocytes % 5.3 %; Platelet Count 442 K/mcL (140-400); Red Blood Count 4.32 M/mcL (4.19-5.50); Red Cell Distribution Width 14.8 % (11.5-14.5); Segmented Neutrophils % 89.9 %
[2017-03-08 20:26] LABS: Neutrophils # 26.9 K/mcL (1.6-8.9)
[2017-03-08] MEDS ORDERED: Piperacillin/Tazobactam 3.375 GM in D5% in Water (Mini-Bag+) 100 ML IVPB SCH (20:30)
[2017-03-08 20:38] LABS: Calcium 9.7 mg/dL (8.6-10.8); Potassium 4.9 mEq/L (3.5-4.5)
[2017-03-08 21:02] LABS: Platelet Estimate Increased (Normal)
[2017-03-08] MEDS ORDERED: *HR* Dextrose 50 % in Water (Syg) 50 ML SYRINGE IVP PRN (21:11)
--- NOTE | 2017-03-08 21:11 | Internal Med History&Physical ---
Date of Encounter: 03/08/17 Time of Encounter: 21:08 Assessment and Plan (1) Sepsis Current visit: Yes Status: Suspected Suspect sepsis due to spontaneous bacterial peritonitis. Patient has a history of epithelioid gastrointestinal stromal tumor, and ascites acquiring weekly paracentesis, he is high-risk for SBP. Start Zosyn for antibiotic therapy empirically. Plan to send peritoneal fluid for culture. Dilaudid and hydrocodone to manage pain. Qualifiers: Sepsis type: sepsis due to unspecified organism Qualified Code(s): A41.9 - Sepsis, unspecified organism (2) Leukocytosis Current visit: Yes Status: Acute Likely due to bacterial peritonitis, CBC in the morning. See plan above Qualifiers: Qualified Code(s): D72.829 - Elevated white blood cell count, unspecified (3) Ascites Current visit: Yes Status: Acute Malignant ascites requiring weekly draining. Patient reports that oncology has been considering changing paracentesis scheduled to twice a week. Interventional radiology consult and for paracentesis tomorrow. Qualifiers: Ascites type: malignant Qualified Code(s): R18.0 - Malignant ascites (4) Hypoglycemia Current visit: Yes Status: Acute Hyperglycemia likely secondary to poor oral intake and sepsis Give D50 1 amp now Discontinue D5 water and start D10 water at 100 mL per hour Diet regular diet Accu-Cheks every hour 2, every 2 hours 2, every 4 hours thereafter Hold glyburide (5) Diabetes Current visit: Yes Status: Acute History of type 2 diabetes and hypoglycemic this time. Hold glyburide. Qualifiers: Diabetes mellitus type: type 2 Diabetes mellitus complication status: without complication Diabetes mellitus termite helper insulin use: without senior care use Qualified Code(s): E11.9 - Type 2 diabetes mellitus without complications (6) Dyspnea Current visit: Yes Status: Acute Due to ascites, in no respiratory distress at this time. Resting comfortably on room air. Qualifiers: Dyspnea type: shortness of breath Qualified Code(s): R06.02 - Shortness of breath; R06.00 - Dyspnea, unspecified; R06.01 - Orthopnea (7) RUTH (acute kidney injury) Current visit: Yes Status: Acute Likely due to hypovolemia and sepsis, as patient is reporting a poor oral intake. Start regular diet and increase oral intake. Monitor intake and output , CMP in the morning. (8) Omental mass Current visit: No Status: Acute Being followed by oncology. Not currently on chemotherapy or radiation, patient reports he is not a candidate. Waiting to start Sunitinib therapy. Consult oncology. Days team to call. (9) Peritoneal metastases Current visit: Yes Status: Chronic Being followed by oncology. see plan above (10) DVT prophylaxis Current visit: Yes Status: Acute EPCD mechanical prophylaxis Internal Medicine - H&P: HPI History of present illness: Mr. Yeager is a 66 year old male Past Med Surg Social Fam HX - Past Medical History Medical history: cancer, COPD, coronary artery disease, diabetes, hyperlipidemia , hypertension Psychiatric history: no psych history - Past Surgical History Surgical History: coronary bypass (CABG) - Social History Smoking Status: Former smoker Smokeless Tobacco Status: No Alcohol use: none Drug use: none - Family History Mother Living Status: Hx Family Cardiac Disorders: Yes (Heart Failure) Father Living Status: Hx Family Respiratory Disorders: Yes (Lung Ca.) Internal Medicine - H&P: Meds Atenolol [Tenormin] 25 mg PO BID 02/16/15 [History] Losartan/HCTZ [Hyzaar 50/12.5] 1 each PO DAILY 02/16/15 [History] Pravastatin Sodium [Pravachol] 20 mg PO HS 02/16/15 [History] Ranitidine HCl [Zantac] 150 mg PO BID PRN 02/16/15 [History] Triamterene/HCTZ 37.5/25mg [Dyazide] 1 each PO DAILY 02/16/15 [History] Clopidogrel [Plavix] 75 mg PO DAILY 09/10/15 [History] Naproxen [Naprosyn] 500 mg PO BID PRN 09/10/15 [History] Albuterol Sulfate [Albuterol Inhaler] 2 puff IH Q4H PRN 02/06/17 [History] Ammonium Lactate [Viji-Hydrolac] 1 appl TP BID PRN 02/06/17 [History] Aspirin Enteric Coated [Aspirin EC] 81 mg PO DAILY 02/06/17 [History] Glimepiride [Amaryl] 4 mg PO BID 02/06/17 [History] OxyCODONE Immed Rel [Roxicodone 5 MG] 5 mg PO Q4HR PRN #90 tablet 03/02/17 [Rx] Prochlorperazine Maleate [Compazine] 10 mg PO Q8HR PRN #90 tablet 03/02/17 [Rx] Spironolactone [Aldactone] 12.5 mg PO DAILY 30 Days #15 tablet 03/02/17 [Rx] Sunitinib Malate [Sutent] 50 mg PO DAILY #14 capsule 03/02/17 [Rx] 3 Allergy/AdvReac Type Severity Reaction Status Date / Time No Known Allergies Allergy Verified 03/02/17 12:17 All Systems PM: A 10-system review of systems was performed and is negative for pertinent findings except as documented above in the HPI. - Constitutional Vitals: Temp Pulse Resp BP Pulse Ox 98.0 F 128 18 109/73 93 03/08/17 21:00 03/08/17 21:00 03/08/17 21:00 03/08/17 21:00 03/08/17 21:00 Internal Med - H&P Results - Labs CBC & Chem 7: 03/08/17 20:10 03/08/17 20:10 Labs: Short CBC 03/08/17 Range/Units 20:10 WBC 29.9 H (4.3-11.1) K/mcL Hgb 11.5 L (12.9-16.9) g/dL Hct 36.8 L (37.5-50.1) % Plt Count 442 H (140-400) K/mcL Neutrophils # 26.9 H (1.6-8.9) K/mcL BMP 03/08/17 20:10 Sodium 140 Potassium 4.9 H Chloride 104 Carbon Dioxide 26 BUN 56 H Creatinine 1.89 H Glucose 42 L Calcium 9.7
[2017-03-08] MEDS ORDERED: *HR* Dextrose 50 % in Water (Syg) 50 ML SYRINGE ONE (21:14)
[2017-03-08] MEDS ORDERED: D10% in Water 500 ML IVC ONE (21:15)
[2017-03-08] MEDS: D10% in Water 500 ML IVC SCH (21:29)
[2017-03-09] MEDS: D10% in Water 500 ML IVC SCH ×3 (01:28→11:19)
[2017-03-09 02:40] LABS: Bilirubin,Urine Negative (Negative); Blood,Urine Negative (Negative); Clarity,Urine Turbid (Clear); Color,Urine Yellow (Yellow); Glucose,Urine (UA) Normal (Normal); Ketones,Urine Negative (Negative); Leukocyte Esterase,Urine Negative (Negative); Nitrite,Urine Negative (Negative); PH,Urine 5.5 pH Units (5.0-8.0); Protein,Urine Negative (Neg-Trace); Specific Gravity,Urine 1.024 (1.010-1.025); Urobilinogen,Urine Normal (Normal)
[2017-03-09 02:42] LABS: Hyaline Casts,Urine None Seen per lpf (None-Few); RBC,Urine 0-3 per hpf (0-3); Squamous Epithelial Cell,Urine Many per lpf (None-Few); WBC,Urine 0-3 per hpf (0-3)
[2017-03-09 02:54] LABS: Amorphous Sediment,Urine Many (Few); Uric Acid Crystals,Urine Present
[2017-03-09 02:55] LABS: Bacteria,Urine Few per hpf (None-Few)
--- NOTE | 2017-03-09 05:07 | Internal Med History&Physical ---
Date of Encounter: 03/08/17 Time of Encounter: 21:30 Assessment and Plan (1) Sepsis Current visit: Yes Status: Acute will admit the pt into tele He does meet sepsis criteria with elevated WBC, tachycardia - possible source of as peritonitis Concerned for SBP with his abdominal pain, frequent paracentesis will start him on empirical abx Zosyn IV fluids Scheduled for Paracenetesis in AM.. will send for fluid cytology / gram staining and analysis IR consulted Qualifiers: Sepsis type: sepsis due to unspecified organism Qualified Code(s): A41.9 - Sepsis, unspecified organism (2) Hypoglycemia Current visit: Yes Status: Acute Severe hypoglycemia due to poor PO intake + Sepsis + Medication induced by sulfonylureas started on D10 IV fluids on regular diet cont close monitoring of BS -- Accucheck Q1h2 x2 then Q2hr (3) Atrial flutter with rapid ventricular response Current visit: Yes Status: Acute Reviewed EKG - seems to be he is in Atrial flutter with RVR May be induced by stress and hypoglycemia cont IV fluids changed his home B danielito Atenolol to Metoprolol cont close monitoring for now (4) Soft tissue sarcoma of peritoneum Current visit: Yes Status: Acute Will consult heme onc in AM cont supportive care for now (5) Ascites Current visit: Yes Status: Acute scheduled for paracentesis in AM So far he is getting weekly..may be he needs twice a week now will talk to Heme Onc Qualifiers: Ascites type: malignant Qualified Code(s): R18.0 - Malignant ascites (6) RUTH (acute kidney injury) Current visit: Yes Status: Acute due to dehydration and sepsis Cr started trending down Cont IV hydration (7) Leukocytosis Current visit: Yes Status: Acute Qualifiers: Qualified Code(s): D72.829 - Elevated white blood cell count, unspecified (8) Peritoneal metastases Current visit: Yes Status: Chronic (9) DVT prophylaxis Current visit: Yes Status: Acute on Heparin SQ Internal Medicine - H&P: HPI Chief complaint: Abdominal pain, Hypoglycemia Admitted From: Emergency Dept Plans for Post Hospital Care: Home History of present illness: Mr. Yeager is a 66 year old male with past medical history of COPD, coronary artery disease, status post CABG, diabetes, hyperlipidemia and hypertension recently diagnosed with epithelioid gastrointestinal stromal tumor, peritoneal sarcomatosis and following with Heme Onc as an out, supposedly he is going to be placed on chemotherapy soon and also going to for every week paracentesis for his ascities, now he went to [facility] ER this morning with severe abdominal pain, weakness and lethargy. He happened to have severe hypoglycemia with BS in 30's. He had further work done there which showed significantly elevated WBC, Cr and concerned for SBP, So pt was transferred here for further care. When I examined the pt he is alert, awake and O x3 , pain is better now with pain medication. Does have mild SOB / CASTILLO, also still feels weak and lethargic, c/o of loss appetite too. Past Med Surg Social Fam HX - Past Medical History Medical history: cancer, COPD, coronary artery disease, diabetes, hyperlipidemia , hypertension Psychiatric history: no psych history - Past Surgical History Surgical History: coronary bypass (CABG) - Social History Smoking Status: Former smoker Smokeless Tobacco Status: No Alcohol use: none Drug use: none - Family History Mother Living Status: Hx Family Cardiac Disorders: Yes (Heart Failure) Father Living Status: Hx Family Respiratory Disorders: Yes (Lung Ca.) Internal Medicine - H&P: Meds Atenolol [Tenormin] 25 mg PO BID 02/16/15 [History] Losartan/HCTZ [Hyzaar 50/12.5] 1 each PO DAILY 02/16/15 [History] Pravastatin Sodium [Pravachol] 20 mg PO HS 02/16/15 [History] Ranitidine HCl [Zantac] 150 mg PO BID PRN 02/16/15 [History] Triamterene/HCTZ 37.5/25mg [Dyazide] 1 each PO DAILY 02/16/15 [History] Clopidogrel [Plavix] 75 mg PO DAILY 09/10/15 [History] Naproxen [Naprosyn] 500 mg PO BID PRN 09/10/15 [History] Albuterol Sulfate [Albuterol Inhaler] 2 puff IH Q4H PRN 02/06/17 [History] Ammonium Lactate [Viji-Hydrolac] 1 appl TP BID PRN 02/06/17 [History] Aspirin Enteric Coated [Aspirin EC] 81 mg PO DAILY 02/06/17 [History] Glimepiride [Amaryl] 4 mg PO BID 02/06/17 [History] OxyCODONE Immed Rel [Roxicodone 5 MG] 5 mg PO Q4HR PRN #90 tablet 03/02/17 [Rx] Prochlorperazine Maleate [Compazine] 10 mg PO Q8HR PRN #90 tablet 03/02/17 [Rx] Spironolactone [Aldactone] 12.5 mg PO DAILY 30 Days #15 tablet 03/02/17 [Rx] Sunitinib Malate [Sutent] 50 mg PO DAILY #14 capsule 03/02/17 [Rx] 3 Allergy/AdvReac Type Severity Reaction Status Date / Time No Known Allergies Allergy Verified 03/02/17 12:17 All Systems PM: A 10-system review of systems was performed and is negative for pertinent findings except as documented above in the HPI. Review of systems: All the systems are reviewed everything is benign except the systems and symptoms I mentioned in the history of present illness - Constitutional Vitals: Temp Pulse Resp BP Pulse Ox 97.3 F L 118 19 106/70 96 03/09/17 04:03 03/09/17 04:03 03/09/17 04:03 03/09/17 04:03 03/09/17 04:03 General appearance: Present: A&O X 3, no acute distress, answers questions appropriately Exam: looks very lethargic and weak - Head Head exam: Present: atraumatic, normal inspection - Respiratory Respiratory exam: Present: decreased breath sounds, wheezes. Absent: rales, respiratory distress, rhonchi - Cardiovascular Cardiovascular exam: Present: irregular rhythm, +S1, +S2, tachycardia - GI/Abdominal GI/Abdominal exam: Present: distended, normal bowel sounds, soft, tenderness ( around marilee umbelical region.). Absent: guarding, rebound, rigid - Extremities Exam Extremities exam: Absent: calf tenderness, pedal edema, tenderness - Back Exam Back exam: Absent: CVA tenderness (L), CVA tenderness (R) - Psychiatric Psychiatric exam: Present: normal affect, normal mood Internal Med - H&P Results - Labs CBC & Chem 7: 03/08/17 20:10 03/08/17 20:10 Labs: Short CBC 03/08/17 Range/Units 20:10 WBC 29.9 H (4.3-11.1) K/mcL Hgb 11.5 L (12.9-16.9) g/dL Hct 36.8 L (37.5-50.1) % Plt Count 442 H (140-400) K/mcL Neutrophils # 26.9 H (1.6-8.9) K/mcL BMP 03/08/17 20:10 Sodium 140 Potassium 4.9 H Chloride 104 Carbon Dioxide 26 BUN 56 H Creatinine 1.89 H Glucose 42 L Calcium 9.7 Urine 03/09/17 Range/Units 02:00 Urine Color Yellow (Yellow) Urine Clarity Turbid A (Clear) Urine pH 5.5 (5.0-8.0) pH Units Ur Specific [place] 1.024 (1.010-1.025) Urine Protein Negative (Neg-Trace) mg/dL Urine Glucose (UA) Normal (Normal) mg/dL - VTE Documentation of Mechanical Device: Intermittent pneumatic compression device
[2017-03-09] MEDS ORDERED: *HR* Dextrose 50 % in Water (Syg) 50 ML SYRINGE IVP ONE (05:27)
[2017-03-09] MEDS ORDERED: *HR* Dextrose 50 % in Water (Syg) 50 ML SYRINGE ONE ×2 (05:27→05:29)
[2017-03-09 05:48] LABS: Basophils % 0.1 %; Eosinophils # 0.1 K/mcL (0.0-0.6); Eosinophils % 0.2 %; Hematocrit 33.6 % (37.5-50.1); Hemoglobin 10.6 g/dL (12.9-16.9); Immature Granulocytes % 0.8 % (0-4); Lymphocytes % 4.2 %; Mean Corpuscular HGB Conc 31.5 g/dL (31.6-35.5); Mean Corpuscular Hemoglobin 27.1 pg (28.0-33.3); Mean Corpuscular Volume 85.9 fL (83.0-100.0); Mean Platelet Volume 10.6 fL (9.4-12.4); Monocytes # 1.4 K/mcL (0.0-1.3); Monocytes % 5.7 %; Neutrophils # 21.2 K/mcL (1.6-8.9); Platelet Count 365 K/mcL (140-400); Red Blood Count 3.91 M/mcL (4.19-5.50)
[2017-03-09 05:55] LABS: INR 1.2; Prothrombin Time 12.8 Seconds (9.4-12.1)
[2017-03-09 06:07] LABS: Platelet Estimate Normal (Normal)
[2017-03-09 06:08] LABS: Albumin/Globulin Ratio 0.5 (1.1-2.2); Bilirubin,Total 0.4 mg/dL (0.2-1.2); Calcium 9.1 mg/dL (8.6-10.8); Globulin 4.2 g/dL (2.4-3.5); Magnesium 2.1 mg/dL (1.6-2.6); Phosphorous 3.5 mg/dL (2.3-4.7); Potassium 4.5 mEq/L (3.5-4.5); Total Protein 6.2 g/dL (6.0-8.3)
[2017-03-09] MEDS ORDERED: Piperacillin/Tazobactam 3.375 GM in D5% in Water (Mini-Bag+) 100 ML IVPB SCH (08:02)
[2017-03-09] MEDS ORDERED: *HR* Dextrose 50 % in Water (Syg) 50 ML SYRINGE IVP PRN (08:08)
[2017-03-09] MEDS ORDERED: D5% in Water 1,000 ML IVC PRN (08:08)
[2017-03-09] MEDS ORDERED: Dextrose Gel 15 GM PO PRN ×2 (08:08)
[2017-03-09] MEDS ORDERED: *HR* HYDROcodone/Acet 10/325 mg TABLET PO PRN ×2 (08:08→08:10)
[2017-03-09] MEDS: Aspirin Enteric Coated 81 MG Tablet PO SCH (08:45)
[2017-03-09] MEDS ORDERED: Pantoprazole 40 MG VIAL IVP SCH (09:00)
[2017-03-09] MEDS: Insulin LISPRO 300 UNITS/3 ML VIAL SQ SCH ×2 (11:19→15:48)
--- NOTE | 2017-03-09 11:51 | IR Procedure Note ---
Date of procedure: 03/09/17 Consent Obtained: Verbal consent Timeout: Correct patient and procedure verified, Correct site verified, Time out performed, Skin prep completed Local anesthetic: Lidocaine 1% Indications: Ascites Procedure Performed: Paracentesis Site/Technique: Right abdomen Results/Findings: Serosanguinous fluid. 4350ml of ascites Estimated blood loss (cc): 1 Complications: None; Tolerated procedure well Post Procedure Treatment Plan: Monitoring in pts room.
[2017-03-09 12:46] LABS: RBC,Peritoneal Fluid 0.192 M/mcL
--- NOTE | 2017-03-09 12:47 | Internal Med Progress Note ---
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 Chau Paracenteses performed by interventional radiology removed more than 4 L of serosanguineous fluid Sent cell count, cultures and other studies Stop Zosyn and start Rocephin IV Continue the fluids Qualifiers: Sepsis type: sepsis due to unspecified organism Qualified Code(s): A41.9 - Sepsis, unspecified organism (2) Hypoglycemia Current Visit: Yes Status: Acute Assessment and plan: Better controlled, discontinue D10 and continue D5 (3) COPD (chronic obstructive pulmonary disease) Current Visit: No Status: Chronic Assessment and plan: Stable not exacerbation Qualifiers: COPD type: unspecified COPD Qualified Code(s): J44.9 - Chronic obstructive pulmonary disease, unspecified (4) Ascites Current Visit: Yes Status: Acute Assessment and plan: Past paracenteses every week, was given the option of having it Pleurx catheter , prefers to continue with weekly paracenteses Qualifiers: Ascites type: malignant Qualified Code(s): R18.0 - Malignant ascites (5) Atrial flutter with rapid ventricular response Current Visit: Yes Status: Acute Assessment and plan: Secondary to sepsis Patient takes atenolol at home, is currently on metoprolol (6) Diabetes Current Visit: Yes Status: Acute Assessment and plan: May use insulin sliding scale Hold glimepiride due to hypoglycemia Qualifiers: Diabetes mellitus type: type 2 Diabetes mellitus complication status: without complication Diabetes mellitus custodial insulin use: without custodial use Qualified Code(s): E11.9 - Type 2 diabetes mellitus without complications - Subjective Interval history: Complains of mild abdominal pain and distention, denies any chest pain or shortness of breath, no fevers, no dysuria or diarrhea. - Constitutional Vitals: Temp Pulse Resp BP Pulse Ox 98.0 F 107 18 105/71 96 03/09/17 11:00 03/09/17 11:00 03/09/17 11:00 03/09/17 11:00 03/09/17 11:00 General appearance: Present: A&O X 3, no acute distress, answers questions appropriately - Head Head exam: Present: atraumatic, normocephalic - Eye Eye exam: Present: PERRL, conjuntiva pink, sclera anicteric Pupils: Present: PERRL - Neck Neck exam general surgery: Present: supple, trachea midline. Absent: lymphadenopathy - Respiratory Respiratory exam: Present: CTAB. Absent: accessory muscle use, rales, rhonchi, wheezes - Cardiovascular Cardiovascular exam: Present: RRR, +S1, +S2. Absent: diastolic murmur, gallop, rubs, systolic murmur - GI/Abdominal GI/Abdominal exam: Present: distended (Severe ascites), normal bowel sounds, soft, no peritoneal signs. Absent: tenderness - Extremities Exam Extremities exam: Present: warm, radial pulses palpable and symmetrical. Absent : calf tenderness, cyanotic, pedal edema - Neurological Exam Neurological exam: Present: CN II-XII intact, oriented X3, no focal deficits. Absent: pronater drift, facial droop, speech deficit - Skin Skin exam: Present: dry, intact Internal Medicine: Result - Labs CBC & Chem 7: 03/09/17 05:21 03/09/17 05:21 Labs: Short CBC 03/08/17 03/09/17 Range/Units 20:10 05:21 WBC 29.9 H 23.8 H (4.3-11.1) K/mcL Hgb 11.5 L 10.6 L (12.9-16.9) g/dL Hct 36.8 L 33.6 L (37.5-50.1) % Plt Count 442 H 365 (140-400) K/mcL Neutrophils # 26.9 H 21.2 H (1.6-8.9) K/mcL BMP 03/08/17 03/09/17 20:10 05:21 Sodium 140 139 Potassium 4.9 H 4.5 Chloride 104 104 Carbon Dioxide 26 28 BUN 56 H 51 H Creatinine 1.89 H 1.56 H Glucose 42 L 63 L Calcium 9.7 9.1 Liver Function 03/09/17 Range/Units 05:21 Total Bilirubin 0.4 (0.2-1.2) mg/dL AST 44 H (5-34) Units/L ALT 15 (0-55) Units/L Alkaline Phosphatase 138 H (38-126) Units/L Albumin 2.0 L (3.5-5.0) g/dL Urine 03/09/17 Range/Units 02:00 Urine Color Yellow (Yellow) Urine Clarity Turbid A (Clear) Urine pH 5.5 (5.0-8.0) pH Units Ur Specific [place] 1.024 (1.010-1.025) Urine Protein Negative (Neg-Trace) mg/dL Urine Glucose (UA) Normal (Normal) mg/dL - ABG Interpretation ABG results: PT/INR, D-dimer PT 12.8 Seconds (9.4-12.1) H 03/09/17 05:21 - Impressions Impressions Paracentesis Ultrasound 03/09/17 00:00 IMPRESSION: Successful ultrasound guided paracentesis. D/ / Keith Gonzalez MD / Keith Gonzalez MD Interpreting Provider: Keith Gonzalez MD - VTE Documentation of Mechanical Device: Intermittent pneumatic compression device Consult Discharge Plan - Plan Referrals: Angel Price, [employer]RO[employer] COURIER [Primary Care Provider] -
[2017-03-09 13:00] LABS: Amylase,Peritoneal Fluid 16 Units/L (No Ref Range); Glucose,Peritoneal Fluid 157 mg/dL (No Ref Range); LDH,Peritoneal Fluid 1497 Units/L (No Ref Range)
[2017-03-09 13:03] LABS: Total Protein,Peritoneal Fluid 2.6 g/dL (No Ref Range)
[2017-03-09] MEDS: D5% in 0.45% NACL 1,000 ML IVC SCH (13:23)
[2017-03-09 13:41] LABS: Appearance of Peritoneal Fl BLOODY (Clear)
--- NOTE | 2017-03-09 19:12 | Electrocardiograph Report ---
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
--- NOTE | 2017-03-09 19:14 | Electrocardiograph Report ---
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
[2017-03-09] MEDS ORDERED: Insulin LISPRO 300 UNITS/3 ML VIAL SQ SCH (21:00)
[2017-03-10] MEDS: D5% in 0.45% NACL 1,000 ML IVC SCH (01:42)
[2017-03-10 07:25] LABS: Hematocrit 37.8 % (37.5-50.1); Hemoglobin 11.5 g/dL (12.9-16.9); Mean Corpuscular HGB Conc 30.4 g/dL (31.6-35.5); Mean Corpuscular Hemoglobin 26.1 pg (28.0-33.3); Mean Corpuscular Volume 85.9 fL (83.0-100.0); Mean Platelet Volume 10.3 fL (9.4-12.4); Platelet Count 424 K/mcL (140-400); Red Cell Distribution Width 14.8 % (11.5-14.5)
[2017-03-10 07:29] LABS: BUN/Creatinine Ratio 30 (6-26); Calcium 9.3 mg/dL (8.6-10.8); Carbon Dioxide 29 mEq/L (19-29); Chloride 103 mEq/L (98-109); Glucose 92 mg/dL (70-99); Osmolality,Calculated 291 (280-300); Potassium 4.7 mEq/L (3.5-4.5); Sodium 137 mEq/L (136-145); eGFR For African Americans > 60 (> 60); eGFR For Non-African Americans > 60 (> 60)
[2017-03-10 07:30] LABS: Blood Urea Nitrogen 33 mg/dL (8-26)
[2017-03-10] MEDS: Insulin LISPRO 300 UNITS/3 ML VIAL SQ SCH ×2 (08:06→11:55)
[2017-03-10] MEDS: Aspirin Enteric Coated 81 MG Tablet PO SCH (08:21)
--- NOTE | 2017-03-10 09:14 | Discharge Summary ---
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 Chau Qualifiers: Sepsis type: sepsis due to unspecified organism Qualified Code(s): A41.9 - Sepsis, unspecified organism (2) Hypoglycemia Priority: Primary Status: Acute (3) COPD (chronic obstructive pulmonary disease) Priority: Secondary Status: Chronic Qualifiers: COPD type: unspecified COPD Qualified Code(s): J44.9 - Chronic obstructive pulmonary disease, unspecified (4) Ascites Priority: Secondary Status: Acute Qualifiers: Ascites type: malignant Qualified Code(s): R18.0 - Malignant ascites (5) Atrial flutter with rapid ventricular response Priority: Secondary Status: Acute (6) Diabetes Priority: Secondary Status: Acute Qualifiers: Diabetes mellitus type: type 2 Diabetes mellitus complication status: without complication Diabetes mellitus fpc insulin use: without director long term care use Qualified Code(s): E11.9 - Type 2 diabetes mellitus without complications - Discharge Medications Prescriptions: Atenolol [Tenormin] 50 mg PO BID 30 Days #60 tablet Cefdinir [Omnicef] 300 mg PO BID #12 capsule Omeprazole [PriLOSEC] 40 mg PO DAILY@0630 #30 [address] Deshpande Medications: Losartan/HCTZ [Hyzaar 50/12.5] 1 each PO DAILY 02/16/15 [History] Pravastatin Sodium [Pravachol] 20 mg PO HS 02/16/15 [History] Ranitidine HCl [Zantac] 150 mg PO BID PRN 02/16/15 [History] Triamterene/HCTZ 37.5/25mg [Dyazide] 1 each PO DAILY 02/16/15 [History] Clopidogrel [Plavix] 75 mg PO DAILY 09/10/15 [History] Naproxen [Naprosyn] 500 mg PO BID PRN 09/10/15 [History] Albuterol Sulfate [Albuterol Inhaler] 2 puff IH Q4H PRN 02/06/17 [History] Ammonium Lactate [Viji-Hydrolac] 1 appl TP BID PRN 02/06/17 [History] Aspirin Enteric Coated [Aspirin EC] 81 mg PO DAILY 02/06/17 [History] OxyCODONE Immed Rel [Roxicodone 5 MG] 5 mg PO Q4HR PRN #90 tablet 03/02/17 [Rx] Prochlorperazine Maleate [Compazine] 10 mg PO Q8HR PRN #90 tablet 03/02/17 [Rx] Spironolactone [Aldactone] 12.5 mg PO DAILY 30 Days #15 tablet 03/02/17 [Rx] Sunitinib Malate [Sutent] 50 mg PO DAILY #14 capsule 03/02/17 [Rx] Atenolol [Tenormin] 50 mg PO BID 30 Days #60 tablet 03/10/17 [Rx] Cefdinir [Omnicef] 300 mg PO BID #12 capsule 03/10/17 [Rx] Omeprazole [PriLOSEC] 40 mg PO DAILY@0630 #30 capsule. 03/10/17 [Rx] Allergies/Adverse Reactions: 3 Allergy/AdvReac Type Severity Reaction Status Date / Time No Known Allergies Allergy Verified 03/02/17 12:17 Procedures/tests Complete & Pending: Procedures Performed prior 72 hours Category Date Time Status IR paracentesis ultrasound [IR] Routine IR 03/09/17 Completed ECG 12 lead ECG [ECG] Routine Y 03/09/17 03:44 Completed ECG 12 lead ECG [ECG] Routine Y 03/09/17 05:25 Completed Date of admission: 03/08/17 20:07 Primary care physician: Angel Price CNP Consults: 03/08/17 20:02 Consult to Interventional Radiology [CONS] Routine Consulting Provider: Radiology Interventional Cols Reason for Consult: dx paracentesis Call Completed: No - Patient Status Disposition: Home, Self-Care Condition: Fair Overall status at discharge: patient is progressing back to baseline - Discharge Instructions Follow Up With: Angel Price CNP [Primary Care Provider] - Additional Instructions: Follow-up with primary care physician within the next 7 days. Discontinue glimepiride permanently. Increase atenolol up to 50 mg twice a day. Complete 6 more days of Cefdinir. Continue paracenteses as outpatient. Follow up with oncology within the next week. - Diet and Activity Activity: increase activity as tolerated Diet: diabetic diet Hospital course: Mr. 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 He happened to have severe hypoglycemia with BS in 30's. He had further work done there which showed significantly elevated WBC at 32.4, Cr 2.47 and abdominal pain concerning for SBP. The patient was started on Zosyn and the next morning he underwent a paracentesis were more than 4 L of peritoneal serosanguineous fluid were removed. Total neutrophil count was 74 which is less than the cutoff value of 250 but probably this was a consequence of receiving antibiotics before. The patient was switched to high dose of Rocephin 2 g daily and his white blood cell count continued to improve, today is down to 19.3, creatinine has come down to 1.1. Also, he was diagnosed with atrial fibrillation with rapid ventricular response, was kept on metoprolol momentarily during his hospitalization. He takes atenolol 25 mg twice a day which will be increased to 50 mg twice a day. The patient is a stable, his glucose is normal, initially he was given D10 and then switch to D5, glimepiride will be discontinued permanently. The patient was given the option to stay on another day but he says that he has a family reunion and because of his diagnosis/prognosis in the long run he would like to attend it. Okay to discharge on Ceftin ear to complete 6 more days. - Time Spent with Patient Total time spent providing and/or coordinating discharge services: Greater than 30 minutes (40 min) - Constitutional Vitals: Temp Pulse Resp BP Pulse Ox 98.3 F 112 18 110/75 91 03/10/17 07:53 03/10/17 07:53 03/10/17 07:53 03/10/17 07:53 03/10/17 07:53 General appearance: Present: A&O X 3, no acute distress, answers questions appropriately - Head Head exam: Present: atraumatic, normocephalic - Eye Eye exam: Present: PERRL, conjuntiva pink, sclera anicteric Pupils: Present: PERRL - Neck Neck exam general surgery: Present: supple, trachea midline. Absent: lymphadenopathy - Respiratory Respiratory exam: Present: decreased breath sounds, CTAB. Absent: accessory muscle use, rales, rhonchi, wheezes - Cardiovascular Cardiovascular exam: Present: RRR, +S1, +S2. Absent: diastolic murmur, gallop, rubs, systolic murmur - GI/Abdominal GI/Abdominal exam: Present: distended (Severe ascites), normal bowel sounds, soft, no peritoneal signs. Absent: tenderness - Extremities Exam Extremities exam: Present: warm, radial pulses palpable and symmetrical. Absent : calf tenderness, cyanotic, pedal edema - Neurological Exam Neurological exam: Present: CN II-XII intact, oriented X3, no focal deficits. Absent: pronater drift, facial droop, speech deficit - Skin Skin exam: Present: dry, intact - VTE Documentation of Mechanical Device: Intermittent pneumatic compression device
[2017-03-10] MEDS ORDERED: FLUARIX QUAD 2017-18 36MOS UP/PF 0.5 ML SYRINGE IM ONE (10:22)
[2017-03-10] MEDS ORDERED: *HR* Metoprolol 5 MG/5 ML VIAL IVP ONE ×4 (10:39→12:00)
[2017-03-10 11:36] VITALS: BP 101/64
== END 2017-03-10 12:50 | disposition home or self-care (01) | DRG 871 ==
LOC: 2ANU → SUATTDRO 20:07
PROVIDERS: ADMIT Family Medicine; ATTEND Internal Medicine

== ENCOUNTER 2017-06-11 15:04 | Observation (INO) ==
[2017-06-12] MEDS ORDERED: Ondansetron 4 MG/2 ML VIAL IVP PRN (01:45)
[2017-06-12] MEDS ORDERED: Naloxone 0.4 MG/ML INJ IVP PRN (01:45)
[2017-06-12] MEDS ORDERED: Acetaminophen 325 MG TABLET PO PRN (01:45)
--- NOTE | 2017-06-12 01:54 | Internal Med History&Physical ---
Date of Encounter: 06/12/17 Time of Encounter: 01:51 Assessment and Plan (1) Hematemesis Current visit: No Status: Acute Hematemeses, unclear source Hold aspirin, Plavix and sunitinib (can cause hemorrhages) Nothing by mouth, IV fluids, Protonix IV X GI consult Protonix for GI prophylaxis and sequential compression devices for DVT prophylaxis. The patient will be admitted for observation. Full code. Time spent on this admission 40 minutes Qualifiers: Nausea presence: with nausea Qualified Code(s): K92.0 - Hematemesis (2) Gastrointestinal stromal tumor Current visit: Yes Status: Acute Epitheliated gastro-intestinal stromal tumor Hold sunitinib as it can cause hemorrhages (3) Diabetes Current visit: No Status: Acute continue insulin sliding scale Qualifiers: Diabetes mellitus type: type 2 Diabetes mellitus complication status: without complication Diabetes mellitus fpc insulin use: without catalyst unit operator use Qualified Code(s): E11.9 - Type 2 diabetes mellitus without complications (4) COPD (chronic obstructive pulmonary disease) Current visit: No Status: Chronic Stable, no exacerbation Qualifiers: COPD type: unspecified COPD Qualified Code(s): J44.9 - Chronic obstructive pulmonary disease, unspecified (5) CAD (coronary artery disease) Current visit: No Status: Chronic Hold aspirin and Plavix For now Continue beta danielito Qualifiers: Coronary Disease-Associated Artery/Lesion type: [place] artery [place] vs. transplanted heart: [place] heart Associated angina: without angina Qualified Code(s): I25.10 - Atherosclerotic heart disease of [place] coronary artery without angina pectoris (6) Essential hypertension Current visit: No Status: Chronic Stable Internal Medicine - H&P: HPI Chief complaint: Vomiting blood Admitted From: Emergency Dept History of present illness: Mr. 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 The patient can complaining of hematemeses, his been having heartburn for a few days for which he has been taking Zantac. Today he had a lot of dark material coming out. Also he has been taking naproxen on a regular basis. His hemoglobin is stable at 16.2 but he is dehydrated. Platelets are 120 glucose is 134 AST 39, ALT 25. Hemoccult was positive. ER from [place] called Dr. Chau and the GI physician on-call recommended admission. Patient was given Protonix and Zofran. The blood pressure was 178/81. His week, complaining of abdominal pain. Past Med Surg Social Fam HX - Past Medical History Medical history: cancer (Peritoneal carcinomatosis, epithelioid gastrointestinal stromal tumor taking sunitinib), COPD (Not oxygen dependent), coronary artery disease, diabetes (Not insulin-dependent), hyperlipidemia, hypertension, other (Colon polyps, a flutter with RVR, severe ascites last paracenteses 5 weeks ago, spontaneous bacterial peritonitis) Psychiatric history: no psych history - Past Surgical History Surgical History: coronary bypass (CABG), other (Paracenteses and shoulder surgery) - Social History Smoking Status: Former smoker Smokeless Tobacco Status: No Alcohol use: rarely Drug use: none - Family History Mother Living Status: Hx Family Cardiac Disorders: Yes Hx Family Cancer: Yes Hx Family Neurologic Disorders: Yes Father Living Status: Age at : 76 Hx Family Respiratory Disorders: Yes (Lung Ca.) Hx Family Cancer: Yes (mesothelioma) - Additional Family History Additional family history: Mother with CHF and father with lung cancer Internal Medicine - H&P: Meds Pravastatin Sodium [Pravachol] 20 mg PO HS 02/16/15 [History] Ranitidine HCl [Zantac] 150 mg PO BID PRN 02/16/15 [History] Triamterene/HCTZ 37.5/25mg [Dyazide] 1 each PO DAILY 02/16/15 [History] Clopidogrel [Plavix] 75 mg PO DAILY 09/10/15 [History] Naproxen [Naprosyn] 500 mg PO BID PRN 09/10/15 [History] Aspirin Enteric Coated [Aspirin EC] 81 mg PO DAILY 02/06/17 [History] Prochlorperazine Maleate [Compazine] 10 mg PO Q8HR PRN #90 tablet 03/02/17 [Rx] Sunitinib Malate [Sutent] 50 mg PO DAILY #14 capsule 03/02/17 [Rx] Oxycodone HCl 10 mg PO TID PRN #90 tab 05/22/17 [Rx] Losartan [Cozaar] 25 mg PO DAILY 06/11/17 [History] Metoprolol [Lopressor] 25 mg PO BID 06/11/17 [History] Promethazine [Phenergan] 25 mg PO Q8HR PRN 06/11/17 [History] 3 Allergy/AdvReac Type Severity Reaction Status Date / Time No Known Allergies Allergy Verified 04/13/17 09:45 All Systems PM: A 10-system review of systems was performed and is negative for pertinent findings except as documented above in the HPI. Review of systems: No chest pain shortness of breath or fever, other systems out of the 10 reviewed were negative - Constitutional Vitals: Temp Pulse Resp BP Pulse Ox 98.2 F 60 16 154/80 90 06/11/17 23:58 06/11/17 23:58 06/11/17 23:58 06/11/17 23:58 06/11/17 23:58 General appearance: Present: A&O X 3 - Head Head exam: Present: atraumatic, normocephalic Additional comments: Dry mucosa, no active bleeding evidenced - Eye Eye exam: Present: PERRL, conjuntiva pink, sclera anicteric Pupils: Present: PERRL - Neck Neck exam general surgery: Present: supple, trachea midline. Absent: lymphadenopathy - Respiratory Respiratory exam: Present: CTAB. Absent: accessory muscle use, rales, rhonchi, wheezes - Cardiovascular Cardiovascular exam: Present: RRR, +S1, +S2. Absent: diastolic murmur, gallop, rubs, systolic murmur - GI/Abdominal GI/Abdominal exam: Present: distended (Ascites), normal bowel sounds, soft, no peritoneal signs. Absent: tenderness - Extremities Exam Extremities exam: Present: warm, radial pulses palpable and symmetrical. Absent : calf tenderness, cyanotic, pedal edema - Neurological Exam Neurological exam: Present: CN II-XII intact, oriented X3, no focal deficits. Absent: pronater drift, facial droop, speech deficit - Skin Skin exam: Present: dry, intact Internal Med - H&P Results - Labs Labs: White blood cell count 6.8, hemoglobin 16.2 platelets 120, sodium 139, potassium 4.4, chloride 103, CO2 24, BUN 21, creatinine 1.2, glucose 134
[2017-06-12] MEDS ORDERED: D5% in Water 1,000 ML IVC PRN (02:01)
[2017-06-12] MEDS ORDERED: *HR* Dextrose 50 % in Water (Syg) 50 ML SYRINGE IVP PRN (02:01)
[2017-06-12] MEDS ORDERED: Dextrose Gel 15 GM/37.5 ML TUBE PO PRN ×2 (02:01)
[2017-06-12] MEDS: Pantoprazole 40 MG VIAL IVP SCH ×3 (02:13→18:40)
[2017-06-12] MEDS: 0.9 % Sodium Chloride 1,000 ML IVC SCH ×2 (02:15→18:45)
[2017-06-12] MEDS: Insulin LISPRO 300 UNITS/3 ML VIAL SQ SCH ×3 (05:59→23:22)
[2017-06-12 06:23] LABS: BUN/Creatinine Ratio 23 (6-26); Blood Urea Nitrogen 19 mg/dL (8-23); Calcium 8.3 mg/dL (8.6-10.3); Carbon Dioxide 25 mEq/L (23-29); Chloride 108 mEq/L (98-107); Glucose 84 mg/dL (70-105); Osmolality,Calculated 291 (280-300); Potassium 3.5 mEq/L (3.5-5.1); Sodium 140 mEq/L (136-145); eGFR For African Americans > 60 (> 60); eGFR For Non-African Americans > 60 (> 60)
[2017-06-12 06:32] LABS: Mean Corpuscular Volume 85.8 fL (83.0-100.0)
[2017-06-12 06:33] LABS: Hematocrit 38.7 % (37.5-50.1); Hemoglobin 13.2 g/dL (12.9-16.9); Immature Platelets 6.1 % (1.1-6.1); Mean Corpuscular HGB Conc 34.1 g/dL (31.6-35.5); Mean Corpuscular Hemoglobin 29.3 pg (28.0-33.3); Mean Platelet Volume 10.7 fL (9.4-12.4); Red Blood Count 4.51 M/mcL (4.19-5.50); Red Cell Distribution Width 19.4 % (11.5-14.5)
--- NOTE | 2017-06-12 13:50 | Anesthesia Evaluation PreOp ---
Date of Encounter: 06/12/17 Time of Encounter: 13:50 - Past History Planned Operation: EGD Cardiac History: HTN, Hyperlipidemia, Arrhythmia (Hx of a. 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 pain.) Anesthesia History: No Prior Anesthetic Complications, Past Anesthesia Alcohol Use: rarely Drug use: none Medications and Allergies Pravastatin Sodium [Pravachol] 20 mg PO HS 02/16/15 [History] Ranitidine HCl [Zantac] 150 mg PO BID PRN 02/16/15 [History] Triamterene/HCTZ 37.5/25mg [Dyazide] 1 each PO DAILY 02/16/15 [History] Clopidogrel [Plavix] 75 mg PO DAILY 09/10/15 [History] Naproxen [Naprosyn] 500 mg PO BID PRN 09/10/15 [History] Aspirin Enteric Coated [Aspirin EC] 81 mg PO DAILY 02/06/17 [History] Prochlorperazine Maleate [Compazine] 10 mg PO Q8HR PRN #90 tablet 03/02/17 [Rx] Sunitinib Malate [Sutent] 50 mg PO DAILY #14 capsule 03/02/17 [Rx] Oxycodone HCl 10 mg PO TID PRN #90 tab 05/22/17 [Rx] Losartan [Cozaar] 25 mg PO DAILY 06/11/17 [History] Metoprolol [Lopressor] 25 mg PO BID 06/11/17 [History] Promethazine [Phenergan] 25 mg PO Q8HR PRN 06/11/17 [History] 3 Allergy/AdvReac Type Severity Reaction Status Date / Time No Known Allergies Allergy Verified 04/13/17 09:45 - Meds/Allergy Pre-op Review Medications Reviewed: Yes Allergies Reviewed: Yes Beta Blockers on Current Med List: No Anesthesia Results - Labs 06/12/17 04:50 06/12/17 04:50 Anesthesia Exam Selected Entries 06/12/17 13:45 Temperature 97.8 F Pulse Rate 65 Respiratory Rate 16 Blood Pressure 166/90 O2 Sat by Pulse Oximetry 95 Weight: 1350 NPO (# of Hours): over 8 hours - HEENT Pupil (Motor): Pupils equal Mallampati: II Teeth: Edentulous Oral Opening: Greater than 3 - Cardiac Rhythm: Regular Murmur: None - Pulmonary Breath Sounds: bilateral Clear Respiratory Effort: Symmetrical Anesthesia Assess/Plan ASA Score: 3 Modified Kennedy Scale for Level of Consciousness: Cooperative, oriented, and tranquil Anesthetic Plan: MAC Monitoring Plan: Standard Monitors Recovery Plan: Other (Discussed MAC anesthesia, agreed to proceed.)
[2017-06-12] MEDS ORDERED: Lidocaine -MPF 2% 2 ML VIAL ONE (14:02)
[2017-06-12] MEDS ORDERED: *HR* Propofol 200 MG/20 ML VIAL IVP ONE (14:03)
[2017-06-12] MEDS ORDERED: *HR* EPINEPHrine 1 MG/10 ML SYRINGE INTRATRACH PRN (14:20)
[2017-06-12] MEDS: *HR* Morphine 2 MG/ML SYRINGE IVP PRN ×2 (15:08→21:42)
[2017-06-12] MEDS: Ondansetron 4 MG/2 ML VIAL IVP SCH ×2 (18:39→23:26)
[2017-06-13] MEDS: *HR* Morphine 2 MG/ML SYRINGE IVP PRN ×2 (03:44→12:09)
[2017-06-13] MEDS: Pantoprazole 40 MG VIAL IVP SCH (05:34)
[2017-06-13 05:51] LABS: Hematocrit 38.6 % (37.5-50.1); Hemoglobin 13.1 g/dL (12.9-16.9); Immature Platelets 4.9 % (1.1-6.1); Mean Corpuscular HGB Conc 33.9 g/dL (31.6-35.5); Mean Corpuscular Hemoglobin 29.6 pg (28.0-33.3); Mean Corpuscular Volume 87.3 fL (83.0-100.0); Mean Platelet Volume 10.5 fL (9.4-12.4); Red Blood Count 4.42 M/mcL (4.19-5.50); Red Cell Distribution Width 19.2 % (11.5-14.5)
[2017-06-13 05:52] LABS: INR 1.2; Prothrombin Time 12.5 Seconds (9.4-12.1)
[2017-06-13] MEDS: Insulin LISPRO 300 UNITS/3 ML VIAL SQ SCH ×2 (06:10→12:04)
[2017-06-13] MEDS: Ondansetron 4 MG/2 ML VIAL IVP SCH ×2 (06:11→12:04)
[2017-06-13 11:07] VITALS: BP 156/80
[2017-06-13 13:10] LABS: BUN/Creatinine Ratio 19 (6-26); Blood Urea Nitrogen 16 mg/dL (8-23); Calcium 8.6 mg/dL (8.6-10.3); Carbon Dioxide 22 mEq/L (23-29); Chloride 109 mEq/L (98-107); Glucose 164 mg/dL (70-105); Magnesium 1.5 mg/dL (1.6-2.6); Osmolality,Calculated 293 (280-300); Potassium 4.2 mEq/L (3.5-5.1); Sodium 139 mEq/L (136-145); eGFR For African Americans > 60 (> 60); eGFR For Non-African Americans > 60 (> 60)
--- NOTE | 2017-06-13 13:29 | Discharge Summary ---
Date of Encounter: 06/13/17 Time of Encounter: 13:27 - Discharge Diagnosis (1) Anh-Cartwright tear Priority: Primary Status: Acute Comments: presented with Hematemesis. Hgb 16 on arrival and dropped to 13. EGD 06/12/17 with 10mm non-bleeding Anh-Cartwright tear with sigmata of recent bleeding; s/p epi injection. No further bleeding. Repeat Hgb stabilized at 13. Discussed with GI and will cont PPI, resume ASA now, resume Plavix in 5 days. Can follow up with GI outpatient. Recommend repeat CBC within 1 week with PCP. (2) Gastrointestinal stromal tumor Priority: Primary Status: Acute Comments: hx epitheliated gastro-intestinal stromal tumor. Follows with Dr. Chau. Currently on chemo. Advised patient to hold sunitinib as it can cause hemorrhages until seen by Dr. Chau. Has follow-up appt 06/15/2017 (3) CAD (coronary artery disease) Priority: Secondary Status: Chronic Comments: per hx. Denied chest pain. Cont home ASA, BB, statin. Resume plavix in 5 days per GI recommendation Qualifiers: Coronary Disease-Associated Artery/Lesion type: [place] artery [place] vs. transplanted heart: [place] heart Associated angina: without angina Qualified Code(s): I25.10 - Atherosclerotic heart disease of [place] coronary artery without angina pectoris (4) COPD (chronic obstructive pulmonary disease) Priority: Secondary Status: Chronic Comments: per hx. No evidence of exacerbation. Qualifiers: COPD type: unspecified COPD Qualified Code(s): J44.9 - Chronic obstructive pulmonary disease, unspecified - Discharge Medications Prescriptions: Omeprazole [PriLOSEC] 40 mg PO DAILY #30 cap Home Medications: Pravastatin Sodium [Pravachol] 20 mg PO HS 02/16/15 [History] Ranitidine HCl [Zantac] 150 mg PO BID PRN 02/16/15 [History] Triamterene/HCTZ 37.5/25mg [Dyazide] 1 each PO DAILY 02/16/15 [History] Naproxen [Naprosyn] 500 mg PO BID PRN 09/10/15 [History] Aspirin Enteric Coated [Aspirin EC] 81 mg PO DAILY 02/06/17 [History] Prochlorperazine Maleate [Compazine] 10 mg PO Q8HR PRN #90 tablet 03/02/17 [Rx] Oxycodone HCl 10 mg PO TID PRN #90 tab 05/22/17 [Rx] Losartan [Cozaar] 25 mg PO DAILY 06/11/17 [History] Metoprolol [Lopressor] 25 mg PO BID 06/11/17 [History] Promethazine [Phenergan] 25 mg PO Q8HR PRN 06/11/17 [History] Clopidogrel [Plavix] 75 mg PO DAILY #0 06/13/17 [Rx] Omeprazole [PriLOSEC] 40 mg PO DAILY #30 cap 06/13/17 [Rx] Allergies/Adverse Reactions: 3 Allergy/AdvReac Type Severity Reaction Status Date / Time No Known Allergies Allergy Verified 04/13/17 09:45 Date of admission: 06/11/17 18:29 Primary care physician: PCP NONE Consults: 06/12/17 01:45 Consult to Gastroenterology [CONS] Routine Consulting Provider: Gastroenterology Kaela Reason for Consult: upper GI bleed Call Completed: No Discharging clinician: Jaki Rondon Anticipated date of discharge: 06/13/17 - Patient Status Disposition: Home, Self-Care Functional capacity at discharge: independent ambulation Overall status at discharge: patient is back to baseline - Discharge Instructions Instructions: Gastrointestinal Bleeding (DC) Follow Up With: Angel Price CNP [Advanced Practice Nurse] - 06/26/17 2:00 pm Sonya Melara MD [Partnered Physician] - 06/15/17 3:00 pm Additional Instructions: Hold Plavix for 5 days - Diet and Activity Activity: increase activity as tolerated Diet: low fat, low cholesterol Interval History: Seen and examined at bedside, patient says he feel better, no further bleeding. Says he would like to go home today. Discussed with Dr. Nicolas and mary to resume ASA at this time, hold Plavix for additional 5 days. Advised patient to hold chemotherapy until seen by Dr. Chau on 06/15/17. Patient verbalizes understanding. Hospital course: See assessment and plan for hospital course - Time Spent with Patient Total time spent providing and/or coordinating discharge services: - Constitutional Vitals: Temp Pulse Resp BP Pulse Ox 97.6 F 51 15 156/80 94 06/13/17 11:05 06/13/17 11:05 06/13/17 11:05 06/13/17 11:05 06/13/17 11:05 General appearance: Present: A&O X 3, morbidly obese - Head Head exam: Present: atraumatic, normocephalic - Eye Eye exam: Present: PERRL, conjuntiva pink, sclera anicteric Pupils: Present: PERRL - Neck Neck exam general surgery: Present: supple, trachea midline. Absent: lymphadenopathy - Respiratory Respiratory exam: Present: CTAB. Absent: accessory muscle use, rales, rhonchi, wheezes - Cardiovascular Cardiovascular exam: Present: RRR, +S1, +S2. Absent: diastolic murmur, gallop, rubs, systolic murmur - GI/Abdominal GI/Abdominal exam: Present: normal bowel sounds, soft, no peritoneal signs. Absent: distended, tenderness - Extremities Exam Extremities exam: Present: warm, radial pulses palpable and symmetrical. Absent : calf tenderness, cyanotic, pedal edema - Neurological Exam Neurological exam: Present: CN II-XII intact, oriented X3, no focal deficits. Absent: pronater drift, facial droop, speech deficit - Skin Skin exam: Present: dry, intact
== END 2017-06-13 15:23 | disposition home or self-care (01) ==
LOC: 3BNU
PROVIDERS: ADMIT Hospitalist; ATTEND Registered Nurse

== ENCOUNTER 2019-03-26 20:39 | Observation (INO) ==
[2019-03-26] MEDS ORDERED: Nitroglycerin 0.4 MG TAB.SUBL SL PRN (21:15)
[2019-03-26] MEDS ORDERED: Aspirin 81 MG TAB.CHEW PO ONE (21:15)
[2019-03-26 21:43] LABS: Basophils % 0.3 %; Hematocrit 34.4 % (37.5-50.1); Hemoglobin 11.4 g/dL (12.9-16.9); Immature Granulocytes % 0.3 % (0-4); Lymphocytes # 0.7 K/mcL (0.6-4.6); Lymphocytes % 24.5 %; Mean Corpuscular HGB Conc 33.1 g/dL (31.6-35.5); Mean Corpuscular Hemoglobin 32.8 pg (28.0-33.3); Mean Corpuscular Volume 98.9 fL (83.0-100.0); Mean Platelet Volume 10.5 fL (9.4-12.4); Monocytes # 0.2 K/mcL (0.0-1.3); Monocytes % 7.9 %; Platelet Count 121 K/mcL (140-400); Red Blood Count 3.48 M/mcL (4.19-5.50)
[2019-03-26 21:54] LABS: INR 1.1; Prothrombin Time 12.1 Seconds (9.4-12.1)
[2019-03-26 21:57] LABS: Activated Partial Thrombo Time 29.5 Seconds (26.0-36.0)
[2019-03-26 22:04] LABS: BUN/Creatinine Ratio 11 (6-26); Blood Urea Nitrogen 14 mg/dL (8-23); Calcium 8.5 mg/dL (8.6-10.3); Carbon Dioxide 31 mEq/L (23-29); Chloride 103 mEq/L (98-107); Glucose 159 mg/dL (70-105); Osmolality,Calculated 296 (280-300); Potassium 3.9 mEq/L (3.5-5.1); Sodium 141 mEq/L (136-145); eGFR For African Americans > 60 (> 60); eGFR For Non-African Americans 59 (> 60)
[2019-03-26 22:07] LABS: Troponin I 0.06 ng/mL (< 0.04)
[2019-03-26] MEDS ORDERED: Nitroglycerin 1 INCH/GM PACKET TP ONE (22:10)
[2019-03-26] MEDS ORDERED: Furosemide 40 MG/4 ML VIAL IVP ONE (22:24)
[2019-03-26] MEDS ORDERED: Ondansetron ODT 4 MG TAB.RAPDIS PO PRN (23:18)
[2019-03-26] MEDS ORDERED: Docusate Oral Soln 100 MG/10 ML UDC PO PRN (23:18)
[2019-03-27] MEDS ORDERED: *HR* Heparin 5,000 UNIT/ML VIAL IVP PRN ×2 (03:39)
[2019-03-27] MEDS ORDERED: *HR* Heparin 5,000 UNIT/ML VIAL IVP ONE (03:39)
[2019-03-27] MEDS: Heparin 25,000 UNIT/250 ML D5W 25,000 UNIT/250 ML IV.SOLN IVC SCH (04:21)
[2019-03-27] MEDS ORDERED: Morphine Sulfate ER (12 HR) 15 MG TABLET.ER PO SCH (06:00)
[2019-03-27] MEDS: Morphine Sulfate ER (12 HR) 15 MG TABLET.ER PO SCH ×2 (06:05→16:59)
[2019-03-27] MEDS ORDERED: Aspirin 325 MG TABLET PO SCH (09:00)
[2019-03-27] MEDS: Furosemide 40 MG TABLET PO SCH (10:59)
[2019-03-27] MEDS ORDERED: *HR* Midazolam HCl 2 MG/2 ML VIAL ONE (12:20)
[2019-03-27] MEDS ORDERED: *HR* Heparin 10,000 UNIT/10 ML VIAL ONE (12:21)
[2019-03-27] MEDS ORDERED: Nitroglycerin 1,000 MCG/10 ML VIAL IV ONE (12:21)
[2019-03-27] MEDS ORDERED: 0.9 % Sodium Chloride 2,000 ML ONE (12:21)
[2019-03-27] MEDS ORDERED: Heparin 1,000 UNITS/500 mL 500 ML ONE (12:21)
[2019-03-27] MEDS ORDERED: ISOVUE-370 200 ML INFUS..BTL ONE (12:21)
[2019-03-27] MEDS ORDERED: *HR* Dextrose 50 % in Water (Syg) 50 ML SYRINGE IVP PRN (16:48)
[2019-03-27] MEDS ORDERED: Dextrose Gel 15 GM/37.5 ML TUBE PO PRN ×2 (16:48)
[2019-03-27] MEDS ORDERED: D5% in Water 1,000 ML IVC PRN (16:48)
[2019-03-27] MEDS: Insulin LISPRO 300 UNITS/3 ML VIAL SQ SCH (17:00)
[2019-03-27] MEDS ORDERED: Insulin LISPRO 300 UNITS/3 ML VIAL SQ SCH (21:00)
[2019-03-27] MEDS ORDERED: Perflutren Lipid Microsphere 1.3 ML in 0.9 % Sodium Chloride 8.7 ML IVP ONE (21:49)
[2019-03-27] MEDS ORDERED: Perflutren Lipid Microsphere 2 ML VIAL ONE (21:52)
[2019-03-27] MEDS: *HR* OxyCODONE Immed Rel 5 MG TABLET PO PRN (22:20)
[2019-03-28] MEDS: Morphine Sulfate ER (12 HR) 15 MG TABLET.ER PO SCH (05:44)
[2019-03-28 06:01] LABS: Basophils % 0.3 %; Eosinophils # 0.1 K/mcL (0.0-0.6); Eosinophils % 1.6 %; Hematocrit 36.5 % (37.5-50.1); Hemoglobin 12.3 g/dL (12.9-16.9); Immature Granulocytes % 0.5 % (0-4); Lymphocytes # 1.3 K/mcL (0.6-4.6); Lymphocytes % 34.5 %; Mean Corpuscular HGB Conc 33.7 g/dL (31.6-35.5); Mean Corpuscular Hemoglobin 32.7 pg (28.0-33.3); Mean Corpuscular Volume 97.1 fL (83.0-100.0); Mean Platelet Volume 10.2 fL (9.4-12.4); Monocytes # 0.3 K/mcL (0.0-1.3); Monocytes % 7.5 %; Neutrophils # 2.1 K/mcL (1.6-8.9); Platelet Count 154 K/mcL (140-400); Red Blood Count 3.76 M/mcL (4.19-5.50); Red Cell Distribution Width 16.2 % (11.5-14.5); Segmented Neutrophils % 55.6 %; White Blood Count 3.7 K/mcL (4.3-11.1)
[2019-03-28 06:20] LABS: BUN/Creatinine Ratio 16 (6-26); Blood Urea Nitrogen 13 mg/dL (8-23); Calcium 8.8 mg/dL (8.6-10.3); Carbon Dioxide 31 mEq/L (23-29); Chloride 101 mEq/L (98-107); Chol/HDL Ratio 3.6 (0-4.9); Cholesterol 126 mg/dL (< 200); Glucose 120 mg/dL (70-105); HDL Cholesterol 35 mg/dL (40-59); LDL Cholesterol,Calculated 74 mg/dL (0-99); Osmolality,Calculated 291 (280-300); Potassium 3.6 mEq/L (3.5-5.1); Sodium 140 mEq/L (136-145); Triglycerides 87 mg/dL (< 150); eGFR For African Americans > 60 (> 60); eGFR For Non-African Americans > 60 (> 60)
[2019-03-28] MEDS: Insulin LISPRO 300 UNITS/3 ML VIAL SQ SCH ×2 (08:23→13:43)
[2019-03-28] MEDS ORDERED: Aspirin 81 MG TAB.CHEW PO SCH (09:00)
[2019-03-28] MEDS: Furosemide 40 MG TABLET PO SCH (09:42)
[2019-03-28] MEDS: *HR* OxyCODONE Immed Rel 5 MG TABLET PO PRN (11:00)
[2019-03-28] MEDS: Heparin 25,000 UNIT/250 ML D5W 25,000 UNIT/250 ML IV.SOLN IVC SCH (13:43)
[2019-03-28] MEDS ORDERED: Isosorbide MONOnitrate (24 HR) 30 MG TAB.ER.24H PO SCH (14:30)
[2019-03-28 15:06] VITALS: BP 132/74
== END 2019-03-28 16:01 | disposition home or self-care (01) ==
LOC: EMEROOARM 20:39 → 3BNU 20:39
PROVIDERS: ADMIT Internal Medicine; ATTEND Internal Medicine

== ENCOUNTER 2020-09-21 13:00 | Observation (INO) ==
[2020-09-21 13:55] LABS: Basophils # 0.1 K/mcL (0.0-0.2); Basophils % 0.8 %; Eosinophils % 0.6 %; Hematocrit 45.3 % (37.5-50.1); Hemoglobin 13.8 g/dL (12.9-16.9); Immature Granulocytes % 0.6 % (0-4); Immature Platelets 7.9 % (1.1-6.1); Lymphocytes # 0.9 K/mcL (0.6-4.6); Mean Corpuscular HGB Conc 30.5 g/dL (31.6-35.5); Mean Corpuscular Hemoglobin 25.6 pg (28.0-33.3); Mean Corpuscular Volume 83.9 fL (83.0-100.0); Monocytes # 0.5 K/mcL (0.0-1.3); Monocytes % 7.2 %; Neutrophils # 5.6 K/mcL (1.6-8.9); Platelet Count 128 K/mcL (140-400); Red Cell Distribution Width 22.5 % (11.5-14.5); Segmented Neutrophils % 78.8 %; White Blood Count 7.1 K/mcL (4.3-11.1)
[2020-09-21 14:10] LABS: INR 1.6; Prothrombin Time 18.1 Seconds (9.4-12.1)
[2020-09-21 14:12] LABS: Activated Partial Thrombo Time 30.8 Seconds (26.0-36.0)
[2020-09-21 14:42] LABS: Alanine Aminotransferase 14 Units/L (7-52); Albumin 3.1 g/dL (3.5-5.7); Alkaline Phosphatase 89 Units/L (34-104); Aspartate Amino Transferase 31 Units/L (13-39); BUN/Creatinine Ratio 28 (6-26); Bilirubin,Direct 0.4 mg/dL (0.0-0.2); Bilirubin,Indirect 0.5 mg/dL (0.0-1.0); Bilirubin,Total 0.9 mg/dL (0.3-1.0); Blood Urea Nitrogen 40 mg/dL (8-23); Calcium 8.5 mg/dL (8.6-10.3); Carbon Dioxide 24 mEq/L (23-29); Chloride 103 mEq/L (98-107); Creatine Kinase 65 Units/L (30-223); Ethanol < 10 mg/dL (Less than 10); Globulin 3.1 g/dL (2.4-3.5); Glucose 143 mg/dL (70-105); Osmolality,Calculated 296 (280-300); Potassium 3.8 mEq/L (3.5-5.1); Sodium 137 mEq/L (136-145); Total Protein 6.2 g/dL (6.4-8.9); eGFR For African Americans 59 (> 60); eGFR For Non-African Americans 49 (> 60)
[2020-09-21 14:59] LABS: Troponin I 0.04 ng/mL (< 0.04)
[2020-09-21] MEDS ORDERED: Furosemide 40 MG in 0.9 % Sodium Chloride 50 ML IVPB ONE (14:59)
[2020-09-21 15:09] LABS: Bilirubin,Urine Negative (Negative); Blood,Urine Negative (Negative); Clarity,Urine Clear (Clear); Color,Urine Yellow (Yellow); Glucose,Urine (UA) Normal (Normal); Hyaline Casts,Urine Many per lpf (None Seen); Ketones,Urine Negative (Negative); Leukocyte Esterase,Urine Negative (Negative); Mucus,Urine Few per lpf (None-Few); Nitrite,Urine Negative (Negative); PH,Urine 5.5 pH Units (5.0-8.0); Protein,Urine 70 mg/dL (Neg-Trace); RBC,Urine 0-3 per hpf (0-3); Specific Gravity,Urine 1.015 (1.010-1.025); Squamous Epithelial Cell,Urine Few per hpf (None-Few)
[2020-09-21] MEDS ORDERED: Furosemide 40 MG/4 ML VIAL IVP ONE (15:15)
[2020-09-21 15:29] LABS: Amphetamine Screen,Urine Negative ng/mL (Cutoff=1000); Barbiturate Screen,Urine Negative ng/mL (Cutoff=200); Benzodiazepines Screen,Urine Negative ng/mL (Cutoff=200); Cannabinoid Screen,Urine Negative ng/mL (Cutoff = 50); Cocaine Screen,Urine Negative ng/mL (Cutoff= 300); Opiate Screen,Urine Positive ng/mL (Cutoff=300); Phencyclidine Screen,Urine Negative ng/mL (Cutoff=25)
[2020-09-21] MEDS: Aspirin 81 MG TAB.CHEW PO STA ×2 (15:50→15:52)
[2020-09-21] MEDS ORDERED: Naloxone 0.4 MG/ML INJ IVP PRN (16:39)
[2020-09-21] MEDS ORDERED: Acetaminophen 325 MG TABLET PO PRN (16:39)
[2020-09-21] MEDS ORDERED: Ondansetron 4 MG/2 ML VIAL IVP PRN (16:39)
[2020-09-21] MEDS ORDERED: Albumin 25% 25gram/100mL 25 GM/100 ML IV.SOLN IVPB ONE (16:50)
[2020-09-21] MEDS ORDERED: *HR* Dextrose 50 % in Water (Vial) 50 ML VIAL IVP PRN (17:04)
[2020-09-21] MEDS ORDERED: D5% in Water 1,000 ML IVC PRN (17:04)
[2020-09-21] MEDS ORDERED: Dextrose Gel 15 GM/37.5 ML TUBE PO PRN ×2 (17:04)
[2020-09-21] MEDS ORDERED: Potassium Chloride 20 MEQ, Lidocaine 1% 2 ML in 0.9 % Sodium Chloride 250 ML IVPB ONE (18:21)
[2020-09-21] MEDS ORDERED: Perflutren Lipid Microsphere 1.3 ML in 0.9 % Sodium Chloride 8.7 ML IVP PRN (19:10)
[2020-09-21] MEDS ORDERED: Ipratropium/Albuterol Neb 3 ML IH PRN (19:19)
[2020-09-21] MEDS ORDERED: *HR* Heparin 5,000 UNIT/ML VIAL IVP ONE (19:28)
[2020-09-21] MEDS ORDERED: *HR* Heparin 5,000 UNIT/ML VIAL IVP PRN ×2 (19:28)
[2020-09-21] MEDS ORDERED: Heparin 25,000UNIT/250ML 1/2NS 25,000 UNIT/250 ML IV.SOLN IVC SCH (19:30)
[2020-09-21] MEDS ORDERED: Insulin LISPRO 300 UNITS/3 ML VIAL SUBQ SCH (21:00)
[2020-09-21] MEDS: Albumin 25% 25gram/100mL 25 GM/100 ML IV.SOLN IVPB SCH (21:12)
[2020-09-21] MEDS: Furosemide 40 MG/4 ML VIAL IVP SCH (23:44)
[2020-09-22] MEDS ORDERED: Amiodarone Premix 360 MG/200 ML BAG IVC ONE (04:28)
[2020-09-22] MEDS ORDERED: Amiodarone Premix 150 MG/100 ML BAG IVPB ONE (04:28)
[2020-09-22 05:46] LABS: Basophils % 0.5 %; Eosinophils # 0.1 K/mcL (0.0-0.6); Eosinophils % 1.5 %; Hematocrit 42.6 % (37.5-50.1); Immature Granulocytes % 0.1 % (0-4); Immature Platelets 7.6 % (1.1-6.1); Lymphocytes # 1.5 K/mcL (0.6-4.6); Lymphocytes % 19.9 %; Mean Corpuscular HGB Conc 30.5 g/dL (31.6-35.5); Mean Corpuscular Hemoglobin 25.1 pg (28.0-33.3); Mean Corpuscular Volume 82.4 fL (83.0-100.0); Monocytes # 0.7 K/mcL (0.0-1.3); Monocytes % 9.3 %; Neutrophils # 5.1 K/mcL (1.6-8.9); Platelet Count 116 K/mcL (140-400); Red Blood Count 5.17 M/mcL (4.19-5.50); Red Cell Distribution Width 22.5 % (11.5-14.5); Segmented Neutrophils % 68.7 %; White Blood Count 7.4 K/mcL (4.3-11.1)
[2020-09-22 06:09] LABS: BUN/Creatinine Ratio 33 (6-26); Blood Urea Nitrogen 38 mg/dL (8-23); Calcium 8.9 mg/dL (8.6-10.3); Carbon Dioxide 23 mEq/L (23-29); Chloride 103 mEq/L (98-107); Glucose 98 mg/dL (70-105); Magnesium 1.9 mg/dL (1.6-2.6); Osmolality,Calculated 293 (280-300); Sodium 137 mEq/L (136-145); eGFR For African Americans > 60 (> 60); eGFR For Non-African Americans > 60 (> 60)
[2020-09-22 06:13] LABS: Estimated Average Glucose 137 mg/dl; Hemoglobin A1C 6.4 %
[2020-09-22] MEDS ORDERED: Levothyroxine 25 MCG TABLET PO SCH (06:30)
[2020-09-22] MEDS: Insulin LISPRO 300 UNITS/3 ML VIAL SUBQ SCH ×2 (07:54→11:55)
[2020-09-22] MEDS: Albumin 25% 25gram/100mL 25 GM/100 ML IV.SOLN IVPB SCH (09:15)
[2020-09-22] MEDS ORDERED: Amiodarone Premix 360 MG/200 ML BAG IVC SCH (10:29)
[2020-09-22] MEDS ORDERED: metOLazone 5 MG TABLET PO ONE (11:45)
[2020-09-22] MEDS: Furosemide 40 MG/4 ML VIAL IVP SCH (12:07)
[2020-09-22] MEDS ORDERED: Aspirin Enteric Coated 81 MG Tablet PO SCH (13:00)
[2020-09-22] MEDS ORDERED: Magnesium Oxide 400 MG TABLET PO SCH (13:30)
[2020-09-22] MEDS ORDERED: Ipratropium Neb 0.5 MG NEBULIZER IH PRN (13:42)
[2020-09-22] MEDS ORDERED: Levalbuterol Neb 0.63 MG/3 ML IH PRN (13:43)
[2020-09-22] MEDS ORDERED: Magnesium Sulfate 1 GM/102 ML PIGGYBACK IVPB ONE (13:44)
[2020-09-22 14:17] LABS: Triiodothyronine (T3) Free 2.22 pg/mL (2.50-3.90)
[2020-09-22 14:40] VITALS: BP 97/79
[2020-09-22] MEDS ORDERED: Albumin 25% 25gram/100mL 25 GM/100 ML IV.SOLN IVPB SCH (18:00)
[2020-09-22] MEDS ORDERED: Furosemide 40 MG/4 ML VIAL IVP SCH (20:00)
== END 2020-09-22 16:32 | disposition expired ==
LOC: EMEROOARM 13:00 → 2NENU 13:00 → SUATTDRO 18:47 → 2NENU 19:51
PROVIDERS: ADMIT Pharmacist; ATTEND Student in an Organized Health Care Education/Training Program